=== PATIENT | female | born 1965 | race Caucasian/White ===

== ENCOUNTER 2022-02-14 11:45 | Emergency (ER) | payer MEDICARE, MEDICAID, SELFPAY ==
--- NOTE | ~2022-02-14 | XR_ITS ---
EXAMINATION: XR FOREARM, RIGHT CLINICAL INFORMATION: Lower forearm injury COMPARISON: None TECHNIQUE: AP and lateral views of the right forearm were obtained. FINDINGS: Osseous alignment is anatomic. No acute fracture is seen. No significant focal soft tissue abnormality identified. XR/XR forearm RT 2V IMPRESSION: No acute findings identified.
[2022-02-14 11:58] VITALS: BP 124/65; PULSE 79; RESP 18; TEMP 35.8; O2SAT 98; BMI 35.4
--- NOTE | 2022-02-14 13:56 | ED_ITS ---
HPI - Extremity Problem General Chief complaint: Extremity Injury, Upper Stated complaint: fall 02/13/22 Time Seen by Provider: 02/14/22 13:48 Source: patient Mode of arrival: ambulatory Limitations: no limitations History of Present Illness HPI Narrative: 56-year-old female presents to ED for right elbow and right wrist pain after falling yesterday. Patient states her dog tripped her and she fell right onto the right forearm and right elbow. Patient denies hitting head or loss of consciousness. patient deniea any other trauma, abdominal pain, chest pain, shortness of breath, rectal bleeding, blood in UA, weakness dziness, swelling of extremities, redness, bluish/black consideration, numbness/tinling Related Data Previous Rx's Medication Instructions Recorded oxycodone 5 mg capsule 5 mg PO TID PRN pain 3 days #9 caps 02/14/22 prednisone 20 mg tablet 40 mg PO DAILY 5 days #10 tabs 02/14/22 Allergies Allergy/AdvReac Type Severity Reaction Status Date / Time aspirin Allergy Difficulty Verified 02/14/22 12:02 Breathing diphenhydramine Allergy Difficulty Verified 02/14/22 12:03 [From Benadryl] Breathing Penicillins Allergy Difficulty Verified 02/14/22 12:03 Breathing Review of Systems Review of Systems: Right elbow/forearm pain Yes all other systems are reviewed and are negative PMFSH Social History Social History Advance Directives: No Advance Directives Information Provided: No Physical Exam Vital Signs: Vital Signs: Last Vital Signs Temp 96.4 F L 02/14/22 11:58 Pulse 78 02/14/22 14:04 Resp 16 02/14/22 14:04 BP 130/72 02/14/22 14:04 Pulse Ox 100 02/14/22 14:04 O2 Del Method 02/14/22 14:04 BMI result Body Mass Index 35.4 Const: General: cooperative, healthy appearing, comfortable, no acute distress, well developed, alert, awake and Physically active Orientation/consciousness: oriented to person, oriented to place, oriented to time and patient oriented x3 HEENT: Head: Yes normal to inspection, Yes No palpable skull fracture present, Yes normocephalic, Yes atraumatic and No abrasion Eyes: General: appearance normal, both eyes and all related structures Neck: Neck: Yes normal visual inspection, Yes full ROM, Yes no lymphadenopathy, Yes no meningeal signs, Yes trachea midline, Yes supple, No anterior neck swelling and No tender Chest: Chest palpation & inspection: normal inspection of the chest and normal palpation of entire chest wall Resp: Effort & Inspection: normal respiratory effort and able to speak in complete sentences Auscultation: clear to auscultation bilaterally Cardio: Jugular venous distension: no JVD Heart sounds: S1 normal heart sound present and S2 normal heart sound present GI: Inspection: Yes normal to inspection and No abdominal wall ecchymosis Palpation (GI): Soft to palpation, not firm, nontender, no guarding and not rigid : General: No CVA tenderness and Yes no CVA tenderness Back/Spine/Pelvis: Back: no CVA tenderness, No CVA tenderness and No back tenderness Skin: General skin exam: no rashes or lesions noted and elasticity normal Neuro: General: oriented to person, oriented to place, oriented to time, patient oriented x3, gait normal, Normal light touch and pain sensation, no meningeal signs, no focal motor deficits and CN's II-XI intact bilaterally Extrem: General: Yes normal to inspection and Yes full ROM Elbow/forearm/wrist images: 1. Tenderness on palpation. Negative crepitus or ecchymosis. Negative deformity. Negative bluish black discoloration. Radial/ulnar pulses intact. Capillary refills intact to all fingers. Motor/neuro/vascular exam of hand wrist intact. 2. Positive for tenderness on palpation. Negative for swelling, erythema, ecchymosis, crepitus, or deformity. Brachial pulses intact. Motor/ ne uro/vascular exam of antecubital fossa, shoulder and biceps normal. Psych: Appearance: grossly normal, well kempt and not disheveled Course Course Course Narrative: Forearm x-ray ordered. Reevaluation(s) Reevaluation #1: Forearm x-ray negative for any wrist forearm or elbow fracture. Patient placed in Arthur wrap of elbow wrist. Patient placed in swing. Patient informed right u pper extremity should not being swing at all times. Patient informed t only for comfort and than patient should remove swing her so her right upper extremity can move. . Patient informed to follow-up primary care provider for re- evaluation and repeat x-ray still have pain. Patient discharged with narcotic and prednisone Time: 16:13 MDM - Extremity (Nontraumatic) MDM Narrative Medical decision making narrative: RIght upper extremity contusion. sprain Discharge Plan Discharge Clinical Impression: Sprain and strain of wrist, Contusion Patient Disposition: Home, Self-Care Instructions: How to Use an Elastic Bandage (ED), Contusion in Adults (ED), Wrist Sprain (ED), Cold Compress or Soak (ED) Additional Instructions: Your x-rays came back negative for fractures. Right upper extremity was placed since Arthur wrap and sling. Sling should not be kept on permanently. Due to make attempts to move the right upper extremity outside of the sling. Return to the ED for redness, blue/discoloration, severe pain, coldness, numbness, bluish black discoloration, swelling, red streaks, fever, chills, chest pain, shortness of breath, or any other concerning symptoms. You need to follow-up with primary care provider for re-evaluation for possible MRI or repeat x-ray if pain does not improved. Prescriptions: New prednisone 20 mg tablet 40 mg PO DAILY 5 Days Qty: 10 0RF oxycodone 5 mg capsule 5 mg PO TID PRN (Reason: pain) 3 Days Qty: 9 0RF Rx Instructions: Partial Fill upon patient request. side effect is drowsiness. Do not take at work or while driving. Referrals: Nettie Muñoz MD [Primary Care Provider] - (Wrist sprain. Elbow contusion. If no improvement may need MRI or repeat x-ray) Stand Alone Forms: Work/School Release Interventions: ED Discharge Assessment Last Done: 02/14/22 17:02 Discharge Date/Time: 02/14/22 17:02 Print Language: Sinhala
[2022-02-14 14:04] VITALS: BP 130/72; PULSE 78; RESP 16; O2SAT 100
[2022-02-14] MEDS: oxyCODONE HCl Immed Release 5 MG TABLET PO (15:07)
[2022-02-14] MEDS: predniSONE 20 MG TABLET 60 MG PO (15:07)
== END 2022-02-14 17:02 | disposition home or self-care (01) ==
PROVIDERS: Emergency Provider Emergency Medicine; PCP Internal Medicine
DX: S63.501A Unspecified sprain of right wrist, initial encounter (principal); S66.911A Strain of unspecified muscle, fascia and tendon at wrist and hand level, right hand, initial encounter; S50.11XA Contusion of right forearm, initial encounter; W01.0XXA Fall on same level from slipping, tripping and stumbling without subsequent striking against object, initial encounter; Y93.9 Activity, unspecified; Y92.019 Unspecified place in single-family (private) house as the place of occurrence of the external cause; Y99.9 Unspecified external cause status
CPT/HCPCS: 73090; 99283; 99284

== ENCOUNTER 2023-06-13 10:56 | Emergency (ER) | payer MEDICARE, MEDICAID, SELFPAY ==
--- NOTE | ~2023-06-13 | CT_ITS ---
EXAMINATION: CT SHOULDER WITHOUT CONTRAST, RIGHT CLINICAL INFORMATION: Pain. Injury. Shoulder trauma. COMPARISON: Radiograph from the same day. TECHNIQUE: Multidetector volumetric imaging was obtained through the right shoulder without contrast. Multiplanar reformatted images in coronal and sagittal orientations were submitted. This CT examination was performed using dose optimization techniques as appropriate, variously including the following: *Automated exposure control *Adjustment of mA and/or kV according to patient size (this includes techniques or standardized protocols for targeted exams where dose is matched to indication/reason for exam; i.e. extremities or head) *Use of iterative reconstruction technique DLP: 372 mGy-cm FINDINGS: A comminuted fracture is present at the proximal humerus with a transverse component at the surgical neck and comminuted components of both the greater and lesser tuberosities. The surgical neck component is not significantly displaced. The greater tuberosity fracture fragments are retracted cephalad and medially up to 1.2 cm. There is a more cephalad medial displacement of the lesser tuberosity fragments up to 1.2 cm. These findings constitute a Neer 3 part fracture. No additional fractures are identified. Glenoid is intact as is the remainder of the scapula. There is mild acromioclavicular synovitis with partial resection of the distal clavicle. Rotator cuff musculature is unremarkable. Soft tissue swelling is present around the humeral head and neck. No clear effusion on these images. No appreciable loose bodies. Axillary neurovascular structures are unremarkable. No adenopathy. Imaged portion of the right hemithorax is unremarkable. CT/CT shoulder RT wo IV con IMPRESSION: Comminuted Neer 3 part fracture of the proximal humerus with displacement of the greater and lesser tuberosities.
--- NOTE | ~2023-06-13 | XR_ITS ---
EXAMINATION: XR SHOULDER, RIGHT CLINICAL INFORMATION: Injury, pain. COMPARISON: None available. TECHNIQUE: AP external rotation, Grashey, scapular Y, and axillary views of the right shoulder. FINDINGS: There is a comminuted fracture right greater tuberosity with displacement. No dislocation seen. The AC joint is unremarkable. There is mild soft tissue swelling. XR/XR shoulder RT min 2V IMPRESSION: Comminuted fracture right greater tuberosity with mild soft tissue swelling. No dislocation seen. Further evaluation with CT may be warranted as the exam is suboptimal likely due to patient's body habitus
--- NOTE | ~2023-06-13 | CT_ITS ---
EXAMINATION: CT HEAD WITHOUT CONTRAST CT FACIAL BONES WITHOUT CONTRAST CT CERVICAL SPINE WITHOUT CONTRAST CLINICAL INFORMATION: Fall. Head strike. Pain. Facial trauma. COMPARISON: None available. TECHNIQUE: Imaging was performed from the skull base to vertex without intravenous administration of contrast. In addition, helical noncontrast CT imaging was acquired through the cervical spine and facial bones and source images were reviewed along with axial reconstructions and sagittal and coronal MPRs. This CT examination was performed using dose optimization techniques as appropriate, variously including the following: *Automated exposure control. *Adjustment of mA and/or kV according to patient size (this includes techniques or standardized protocols for targeted exams where dose is matched to indication/reason for exam; i.e. extremities or head). *Use of iterative reconstruction technique. DLP: 1634 mGy-cm FINDINGS: Head: There are small volume hyperattenuating subdural blood products located right posterior aspect of the falx cerebri, measuring up to 0.2 cm in depth. No evidence of edematous territorial infarction. Munoz-white matter differentiation is preserved. A few foci of hypoattenuation in the periventricular and deep white matter are consistent with mild to moderate microangiopathy. The ventricles are normal in morphology and size. No evidence for obstructive hydrocephalus. No abnormal mass effect or midline shift. No extra-axial fluid collections. No acute soft tissue or osseous abnormalities. Maxillofacial Bones: Minimally displaced fractures of the lateral wall of the right orbit, the lateral aspect of the right orbital floor, and the lateral wall of the right maxillary sinus. Trace soft tissue gas along these fractures. Small volume blood products layering within the right maxillary sinus. No evidence of additional maxillofacial bone fractures. The zygomatic arches remain intact. No nasal bone fracture. Moderate rightward nasal septal deviation. No evidence of mandibular fracture. The mandibular condyles remain well-seated in their respective temporal articular grooves. Normal appearance of the intraconal and extraconal fat. No evidence of traumatic injury to the extraocular musculature or globes. Bilateral lens extractions. Mild mucosal thickening of the remaining paranasal sinuses. The mastoid air cells and middle ear cavities are clear. Extensive multifocal odontogenic enamel erosions and periapical lucencies. Cervical Spine: The atlantooccipital and atlantoaxial articulations remain well aligned. Straightening of the normal cervical lordosis. Mild left convex curvature of the cervical spine. Moderate right convex curvature of the visualized thoracic spine. Otherwise, there is anatomic alignment of the vertebral bodies and posterior elements. No evidence of acute fracture or subluxation. The vertebral body heights are maintained. Advanced degenerative disc disease from C5-C7. Mild to moderate degenerative disc disease at all additional levels. Facet and uncovertebral joint arthropathy leads to osseous encroachment on the neural foramina at C5-C6. There is no prevertebral soft tissue swelling. The thyroid gland and remaining cervical soft tissues are within normal limits. The lung apices demonstrate no abnormalities. CT/CT cervical spine wo IV con IMPRESSION: 1. Small volume acute subdural hematoma along the right posterior aspect of the falx cerebri. 2. No evidence of edematous territorial infarction. Mild to moderate underlying microangiopathy. 3. No evidence of acute fracture or traumatic subluxation of the cervical spine. Moderate multilevel degenerative spondyloarthropathy of the cervical spine. 4. Minimally displaced fractures of the lateral wall of the right orbit, lateral aspect of the right orbital floor, and lateral wall of the right maxillary sinus. Small volume blood products layering within the right maxillary sinus. 5. Extensive multifocal odontogenic disease.
--- NOTE | 2023-06-13 11:10 | ED_ITS ---
HPI - General Adult General Chief complaint: Fall Stated complaint: R SHOULDER/ELBOW PAIN S/P FALL ON SIDEWALK PER EMS Time Seen by Provider: 06/13/23 11:09 Source: patient and EMS Mode of arrival: EMS Limitations: no limitations History of Present Illness HPI narrative: Patient is a 57 year old assigned female at with a history of drop foot presenting to the emergency department today with right shoulder / arm pain after a trip and fall. Patient states that she was walking on the sidewalk when she tripped on the uneven side walk and hit her face and right shoulder. Patient denies any loss of consciousness. Patient denies any dizziness, lightheadedness, abdominal pain, nausea, vomiting, fever, chills, blurry vision, double vision, loss of vision, chest pain, difficulty breathing, shortness of breath, back pain, night sweats, pain with urination, increased urinary frequency, increased urinary urgency, blood in her urine or stool, syncope or a near syncopal episode, bowel incontinence, bladder incontinence, bowel retention, bladder retention, or any other complaints at this time. Onset (ago): minute(s) Location: right and upper extremity Radiation: non-radiation Severity: moderate Severity scale (1-10): 5 Quality: aching Pain Consistency: constant Relieving factors: immobilization Exacerbating factors: movement Associated symptoms: denies other symptoms Treatments prior to arrival: none Related Data Previous Rx's Medication Instructions Recorded oxycodone 5 mg capsule 5 mg PO TID PRN pain 3 days #9 caps 02/14/22 prednisone 20 mg tablet 40 mg (2 x 20 mg) PO DAILY 5 days 02/14/22 #10 tabs Allergies Allergy/AdvReac Type Severity Reaction Status Date / Time aspirin [ASA] Allergy Unknown HIVES, Unverified 02/15/22 08:13 DIFF BREATHING penicillin V Allergy Unknown Verified 02/15/22 08:13 Penicillins [PENICILLINS] Allergy Unknown HIVES, Unverified 02/15/22 08:13 DIFF BREATHING diphenhydramine Allergy Difficulty Verified 02/15/22 08:13 [From Benadryl] Breathing Review of Systems Constitutional: Constitutional: Reports no additional constitutional complaints, Denies chills, Denies fever(s) and Denies night sweats Eyes: Eyes: Reports no additional eye complaints, Denies blurry vision, Denies change in vision, Denies diplopia, Denies eye discharge, Denies loss of vision and Denies eye pain ENT: Denies dizziness Cardiovascular: Cardiovascular: Reports no additional cardiovascular complaints, Denies chest pain, Denies lightheadedness, Denies Loss of Consciousness and Denies dyspnea Respiratory: Respiratory: Reports no additional respiratory complaints and Denies dyspnea Gastrointestinal: Gastrointestinal: Reports no additional gastrointestinal complaints, Denies abdominal pain, Denies melena, Denies hematochezia, Denies change in bowel habits and Denies change in stool character Genitourinary: Genitourinary: Denies hematuria, Denies urinary frequency, Denies dysuria, Denies urinary incontinence, Denies urinary hesitancy and Denies urinary urgency Musculoskeletal: Musculoskeletal: Reports no additional musculoskeletal complaints, Denies numbness and Denies tingling Comments: right shoulder pain Neurologic: Denies dizziness, Denies loss of vision, Denies numbness and Denies tingling Psychiatric: Psychiatric: Reports no additional psychiatric complaints Endocrine: Endocrine: Reports no additional endocrine complaints Hematologic/Lymphatic: Hematologic/Lymphatic: Reports no additional hematologic/lymphatic complaints Allergic/Immunologic: Allergic/Immunologic: Reports no additional allergic/immunologic complaints PMFSH Past Medical History Attestation statement: The following information was validated with the patient. Source: old records reviewed and nursing notes reviewed Social History Social History Advance Directives: No Advance Directives Information Provided: No Physical Exam ED Vital Signs: Vital Signs - 24 hr 06/13/23 11:30 06/13/23 11:36 06/13/23 11:40 Temperature 98.3 F Pulse Rate 86 79 Respiratory Rate 18 18 18 Blood Pressure 150/69 H 145/55 H Pulse Oximetry 100 95 Oxygen Delivery Method Room Air 06/13/23 12:25 Temperature Pulse Rate Respiratory Rate 18 Blood Pressure Pulse Oximetry Oxygen Delivery Method BMI result Body Mass Index 43.3 Const General: cooperative, no acute distress, alert and awake Nutritional Appearance: well nourished Orientation/consciousness: patient oriented x3 Limitations: no limitations HENMT Ears: hearing grossly normal bilaterally and external ears normal General nose exam: Normal external nose present, no nasal discharge noted and no epistaxis Face and sinus: Yes abrasion (right side of face) Mouth: Normal oral and palatal mucosa present, no drooling and no muffled voice Eyes Other: swell present to the right upper and lower lids Conjunctivae: conjunctivae normal Pupils: Equal, round and reactive pupils present EOM: EOMs intact bilaterally Neck Neck: Yes normal visual inspection, Yes full ROM and Yes no lymphadenopathy Chest Chest palpation & inspection: normal inspection of the chest Resp Effort & Inspection: normal respiratory effort and able to speak in complete sentences GI Inspection: Yes normal to inspection Neuro General: patient oriented x3 and moves all extremities Cranial nerves: Yes Equal, round and reactive pupils present Cognition (Neuro): normal cognition Motor exam (neuro): 5/5 motor strength present throughout Sensory Exam: Normal double simultaneous stimulation for sensation Coordination: [id number] test normal Extrem General: Yes normal to inspection, Yes full ROM and Yes capillary refill normal Psych Appearance: grossly normal Mental Status: mental status grossly normal Affect: normal affect Attitude: cooperative Thought process: Normal thought process present Thought content: Normal thought content present Insight: Good insight present (Psych) Medications Administered Discontinued Medications Generic Name Dose Route Start Last Admin Trade Name Anastacio PRN Reason Stop Dose Admin Hydromorphone HCl 1 mg 06/13/23 11:21 06/13/23 11:36 Hydromorphone Hcl 1 Mg/Ml Syringe IVPUSH 06/13/23 11:22 1 mg ONCE ONE Administration Protocol Hydromorphone HCl 1 mg 06/13/23 13:19 06/13/23 13:26 Hydromorphone Hcl 1 Mg/Ml Syringe IVPUSH 06/13/23 13:20 1 mg ONCE ONE Administration Protocol Procedures Orthopedic Splinting/Casting Injury #1: Side: right Upper Extremity Injury Location: shoulder and upper arm Upper Extremity Immobilizer: sling/shoulder immobilizer Medical Decision Making Medical Decision Making [facility] Narrative: Patient is a 57 year old assigned female at with a history of right foot drop presenting to the emergency department today with right sided shoulder pain after a trip and fall. Patient's physical exam was as noted in the physical exam portion of this note. Patient's right shoulder x-ray showed a humerus fx and recommended CT for further evaluation. Patient's CT of the right shoulder showed a comminuted neer 3 part fracture of the proximal humerus with displacement of the greater and lesser tuberosities. Patient's CT head showed a small volume acute subdural hematoma along the posterior aspect of the falx cerebri. Patient's CT c-spine was negative. Patient's CT face showed minimally displaced fractures of the lateral wall of the right orbit, fracture of the lateral aspect of the right orbital floor, and fracture of the right lateral maxillary sinus wall with small volume blood products in the right maxillary sinus. I called [facility] and spoke to Dr. Vega who agreed to transfer the patient to the ED as a truama consult. I explained my physical exam findings as well as all test results to the patient and the patient's partner. I answered all questions asked by the patient and the patient's partner. Patient and the patient's partner verbalized agreement and understanding with this treatment plan and transfer. Differential Diagnosis Differential Diagnoses: The differential diagnosis associated with the presentation includes Humerus fracture Facial fracture Subdural hematoma Fall Injury Admission/Observation Consideration of admission/observation: Escalation of care including admission/observation considered Patient transferred to [facility], accepted by Dr. Vega Consult Healthcare Provider Management of the patient was discussed with: Senior Vice President & General Counsel (spoke to Dr. Vega at [facility]) Independent Interpretation I performed an independent interpretation of an: Plain X-Ray and CT Scan Interpretation: My interpretation is in agreement with the radiologist's impression of these imaging studies. -------- EXAMINATION: XR SHOULDER, RIGHT CLINICAL INFORMATION: Injury, pain. COMPARISON: None available. TECHNIQUE: AP external rotation, Grashey, scapular Y, and axillary views of the right shoulder. FINDINGS: There is a comminuted fracture right greater tuberosity with displacement. No dislocation seen. The AC joint is unremarkable. There is mild soft tissue swelling. XR/XR shoulder RT min 2V IMPRESSION: Comminuted fracture right greater tuberosity with mild soft tissue swelling. No dislocation seen. Further evaluation with CT may be warranted as the exam is suboptimal likely due to patient's body habitus Dictated By: Zhang Locke MD Signed By: Electronically signed by Zhang Locke MD 06/13/23 1212 EXAMINATION: CT HEAD WITHOUT CONTRAST CT FACIAL BONES WITHOUT CONTRAST CT CERVICAL SPINE WITHOUT CONTRAST CLINICAL INFORMATION: Fall. Head strike. Pain. Facial trauma. COMPARISON: None available. TECHNIQUE: Imaging was performed from the skull base to vertex without intravenous administration of contrast. In addition, helical noncontrast CT imaging was acquired through the cervical spine and facial bones and source images were reviewed along with axial reconstructions and sagittal and coronal MPRs. This CT examination was performed using dose optimization techniques as appropriate, variously including the following: *Automated exposure control. *Adjustment of mA and/or kV according to patient size (this includes techniques or standardized protocols for targeted exams where dose is matched to indication/reason for exam; i.e. extremities or head). *Use of iterative reconstruction technique. DLP: 1634 mGy-cm FINDINGS: Head: There are small volume hyperattenuating subdural blood products located right posterior aspect of the falx cerebri, measuring up to 0.2 cm in depth. No evidence of edematous territorial infarction. Munoz-white matter differentiation is preserved. A few foci of hypoattenuation in the periventricular and deep white matter are consistent with mild to moderate microangiopathy. The ventricles are normal in morphology and size. No evidence for obstructive hydrocephalus. No abnormal mass effect or midline shift. No extra-axial fluid collections. No acute soft tissue or osseous abnormalities. Maxillofacial Bones: Minimally displaced fractures of the lateral wall of the right orbit, the lateral aspect of the right orbital floor, and the lateral wall of the right maxillary sinus. Trace soft tissue gas along these fractures. Small volume blood products layering within the right maxillary sinus. No evidence of additional maxillofacial bone fractures. The zygomatic arches remain intact. No nasal bone fracture. Moderate rightward nasal septal deviation. No evidence of mandibular fracture. The mandibular condyles remain well-seated in their respective temporal articular grooves. Normal appearance of the intraconal and extraconal fat. No evidence of traumatic injury to the extraocular musculature or globes. Bilateral lens extractions. Mild mucosal thickening of the remaining paranasal sinuses. The mastoid air cells and middle ear cavities are clear. Extensive multifocal odontogenic enamel erosions and periapical lucencies. Cervical Spine: The atlantooccipital and atlantoaxial articulations remain well aligned. Straightening of the normal cervical lordosis. Mild left convex curvature of the cervical spine. Moderate right convex curvature of the visualized thoracic spine. Otherwise, there is anatomic alignment of the vertebral bodies and posterior elements. No evidence of acute fracture or subluxation. The vertebral body heights are maintained. Advanced degenerative disc disease from C5-C7. Mild to moderate degenerative disc disease at all additional levels. Facet and uncovertebral joint arthropathy leads to osseous encroachment on the neural foramina at C5-C6. There is no prevertebral soft tissue swelling. The thyroid gland and remaining cervical soft tissues are within normal limits. The lung apices demonstrate no abnormalities. CT/CT cervical spine wo IV con IMPRESSION: 1. Small volume acute subdural hematoma along the right posterior aspect of the falx cerebri. 2. No evidence of edematous territorial infarction. Mild to moderate underlying microangiopathy. 3. No evidence of acute fracture or traumatic subluxation of the cervical spine. Moderate multilevel degenerative spondyloarthropathy of the cervical spine. 4. Minimally displaced fractures of the lateral wall of the right orbit, lateral aspect of the right orbital floor, and lateral wall of the right maxillary sinus. Small volume blood products layering within the right maxillary sinus. 5. Extensive multifocal odontogenic disease. Dictated By: Sree Mendez DO Signed By: Electronically signed by Sree Mendez DO 06/13/23 1355 EXAMINATION: CT SHOULDER WITHOUT CONTRAST, RIGHT CLINICAL INFORMATION: Pain. Injury. Shoulder trauma. COMPARISON: Radiograph from the same day. TECHNIQUE: Multidetector volumetric imaging was obtained through the right shoulder without contrast. Multiplanar reformatted images in coronal and sagittal orientations were submitted. This CT examination was performed using dose optimization techniques as appropriate, variously including the following: *Automated exposure control *Adjustment of mA and/or kV according to patient size (this includes techniques or standardized protocols for targeted exams where dose is matched to indication/reason for exam; i.e. extremities or head) *Use of iterative reconstruction technique DLP: 372 mGy-cm FINDINGS: A comminuted fracture is present at the proximal humerus with a transverse component at the surgical neck and comminuted components of both the greater and lesser tuberosities. The surgical neck component is not significantly displaced. The greater tuberosity fracture fragments are retracted cephalad and medially up to 1.2 cm. There is a more cephalad medial displacement of the lesser tuberosity fragments up to 1.2 cm. These findings constitute a Neer 3 part fracture. No additional fractures are identified. Glenoid is intact as is the remainder of the scapula. There is mild acromioclavicular synovitis with partial resection of the distal clavicle. Rotator cuff musculature is unremarkable. Soft tissue swelling is present around the humeral head and neck. No clear effusion on these images. No appreciable loose bodies. Axillary neurovascular structures are unremarkable. No adenopathy. Imaged portion of the right hemithorax is unremarkable. CT/CT shoulder RT wo IV con IMPRESSION: Comminuted Neer 3 part fracture of the proximal humerus with displacement of the greater and lesser tuberosities. Dictated By: N Signed By: Electronically signed by N 06/13/23 1122 Radiology Impression Discussion of test interpretation with radiology: I have reviewed the radiologist's reading. Independent Historian Clinical information obtained from an independent historian. History obtained from or confirmed by: EMS (EMS provided additional history and confirmed the history provided by the patient.) and Other (patient's partner provided additional history and confirmed the history provided by the patient.) Critical Care Time Critical Care Time Critical Care Time: Yes Total Critical Care Time: 65 Attestation: I spent 65 minutes of Critical Care Time with this patient. This does not include time spent on separately reported billable procedures. Discharge Plan Discharge Clinical Impression: Fall, Orbital fracture, Acute subdural hematoma, Fracture, humerus Patient Disposition: General Acute Hospital Transfer Details: [facility] ED - Trauma consult under Dr. Vega Prescriptions: No Action prednisone 20 mg tablet 40 mg PO DAILY 5 Days Qty: 10 0RF oxycodone 5 mg capsule 5 mg PO TID PRN (Reason: pain) 3 Days Qty: 9 0RF Rx Instructions: Partial Fill upon patient request. side effect is drowsiness. Do not take at work or while driving.
[2023-06-13 11:30] VITALS: BP 150/69; PULSE 86; RESP 18; TEMP 36.8; O2SAT 100; BMI 43.3
[2023-06-13 11:36] VITALS: RESP 18
[2023-06-13] MEDS: HYDROmorphone HCl 1 MG/ML SYRINGE IVPUSH ×2 (11:36→13:26)
[2023-06-13 11:40] VITALS: BP 145/55; PULSE 79; RESP 18; O2SAT 95
[2023-06-13 12:25] VITALS: RESP 18
== END 2023-06-13 16:00 | disposition short-term general hospital (02) ==
PROVIDERS: Emergency Provider Emergency Medicine; PCP Internal Medicine
DX: S06.5X0A Traumatic subdural hemorrhage without loss of consciousness, initial encounter (principal); S02.841A Fracture of lateral orbital wall, right side, initial encounter for closed fracture; S42.231A 3-part fracture of surgical neck of right humerus, initial encounter for closed fracture; S00.81XA Abrasion of other part of head, initial encounter; W10.1XXA Fall (on)(from) sidewalk curb, initial encounter; Y93.01 Activity, walking, marching and hiking; Y92.480 Sidewalk as the place of occurrence of the external cause; Y99.9 Unspecified external cause status
CPT/HCPCS: 70450; 70486; 72125; 73030; 73200; 96374; 96376; 99285; J1170

== ENCOUNTER 2023-11-17 09:26 | Emergency (ER) | payer MEDICARE, MEDICAID, SELFPAY ==
--- NOTE | ~2023-11-17 | XR_ITS ---
EXAMINATION: XR RIGHT ANKLE XR RIGHT FOOT CLINICAL INFORMATION: Right lower extremity injury and pain. COMPARISON: 12/14/2012 and 11/28/2012 TECHNIQUE: AP, lateral, and oblique views of the right ankle and right foot were obtained. FINDINGS: Alignment is anatomic. Ankle mortise is maintained. The talar dome is intact. No displaced fracture or dislocation. Hallux valgus with mild joint space narrowing of the first MTP joint. Posterior and plantar calcaneal spurs. There is calcification within the plantar fascia. XR/XR foot RT min 3V IMPRESSION: No acute abnormality.
--- NOTE | ~2023-11-17 | XR_ITS ---
EXAMINATION: XR RIGHT ANKLE XR RIGHT FOOT CLINICAL INFORMATION: Right lower extremity injury and pain. COMPARISON: 12/14/2012 and 11/28/2012 TECHNIQUE: AP, lateral, and oblique views of the right ankle and right foot were obtained. FINDINGS: Alignment is anatomic. Ankle mortise is maintained. The talar dome is intact. No displaced fracture or dislocation. Hallux valgus with mild joint space narrowing of the first MTP joint. Posterior and plantar calcaneal spurs. There is calcification within the plantar fascia. XR/XR ankle RT min 3V IMPRESSION: No acute abnormality.
[2023-11-17 09:28] VITALS: BP 157/70; PULSE 106; RESP 16; TEMP 36.3; O2SAT 95; BMI 37.3
--- NOTE | 2023-11-17 09:37 | PC.NURSE ---
patient a&ox3, awaiting radiology for xrays, will continue to monitor
--- NOTE | 2023-11-17 11:02 | ED_ITS ---
HPI - General Adult General Chief complaint: Extremity Injury, Lower Stated complaint: R ankle injury Time Seen by Provider: 11/17/23 09:31 Source: patient Mode of arrival: ambulatory Limitations: no limitations History of Present Illness ED Provider: Sohail MONTANO HPI narrative: 58 yold female with past medical history of diabetes presents to ED for right ankle pain since yesterday. Patient states she was walking and she missed time her step and stepped wrong on a curve. Patient denies hearing cracking or popping sign. patient states twisting ankle Patient denies falling to the ground. Patient states ever since having a missed that step she has had pain in her right ankle. Patient denies falling to the ground or hitting head. Patient denies any loss of consciousness, abdominal pain, neck pain, chest pain, shortness of breath, leg swelling, bluish black discoloration, redness, calf pain, fever, chills, stiffness, or weakness. Related Data Previous Rx's ?Medication ?Instructions ?Recorded oxycodone 5 mg capsule 5 mg PO TID PRN pain 3 days #9 caps 02/14/22 prednisone 20 mg tablet 40 mg (2 x 20 mg) PO DAILY 5 days 02/14/22 #10 tabs acetaminophen 325 mg capsule 325 mg PO QID PRN pain 7 days #28 11/17/23 caps oxycodone 5 mg tablet 5 mg PO Q8H PRN pain 3 days #9 tabs 11/17/23 Allergies Allergy/AdvReac Type Severity Reaction Status Date / Time aspirin [ASA] Allergy Unknown HIVES, Verified 11/17/23 09:28 DIFF BREATHING penicillin V Allergy Unknown Unknown Verified 11/17/23 09:28 Penicillins [PENICILLINS] Allergy Unknown HIVES, Verified 11/17/23 09:28 DIFF BREATHING diphenhydramine Allergy Difficulty Verified 11/17/23 09:28 [From Benadryl] Breathing Review of Systems 2 Review of Systems: Right ankle pain Yes all other systems are reviewed and are negative [facility] Social History Social History Advance Directives: No Advance Directives Information Provided: Yes Physical Exam ED Vital Signs: Vital Signs - 24 hr 11/17/23 09:28 11/17/23 12:26 Temperature 97.3 F 98.1 F Pulse Rate 106 H 98 Respiratory Rate 16 16 Blood Pressure 157/70 H 156/72 H Pulse Oximetry 95 96 Oxygen Delivery Method Room Air Room Air BMI result Body Mass Index 37.3 Const General: cooperative, healthy appearing, comfortable, no acute distress, well developed, alert, awake and Physically active Orientation/consciousness: patient oriented x3 [facility] Head: Yes normal to inspection, Yes No palpable skull fracture present, Yes normocephalic, Yes atraumatic and No abrasion Eyes General: appearance normal, both eyes and all related structures Neck Neck: Yes normal visual inspection, Yes full ROM, Yes no lymphadenopathy, Yes no meningeal signs, Yes trachea midline, Yes supple, No anterior neck swelling and No tender Chest Chest palpation & inspection: normal inspection of the chest and normal palpation of entire chest wall Resp Effort & Inspection: normal respiratory effort and able to speak in complete sentences Cardio Jugular venous distension: no JVD Heart sounds: S1 normal heart sound present and S2 normal heart sound present GI Inspection: Yes normal to inspection Palpation (GI): Soft to palpation, not firm, nontender, no guarding and not rigid General: No CVA tenderness and Yes no CVA tenderness Back/Spine/Pelvis Back: no CVA tenderness, No CVA tenderness and No back tenderness Skin General skin exam: no rashes or lesions noted, elasticity normal and turgor normal Neuro General: patient oriented x3, gait normal, tone normal, moves all extremities, Normal light touch and pain sensation, no meningeal signs, no focal motor deficits, CN's II-XI intact bilaterally and normal sensation to monofilament Extrem General: Yes normal to inspection, Yes full ROM, Yes capillary refill normal and Yes normal exam except as noted Ankle/foot/toe images: 2 1. Positive for tenderness on palpation. Negative for crepitus, ecchymosis, or deformity. Negative for erythema. Achilles intact. Negative for open wounds. Negative for pus discharge or foul odor. Motor/neuro/vascular exam intact. Rest of extremity normal Psych Appearance: grossly normal, well kempt and not disheveled Medications Administered Discontinued Medications Generic Name Dose Route Start Last Admin Trade Name Freq PRN Reason Stop Dose Admin Acetaminophen 975 mg 11/17/23 11:36 11/17/23 11:47 Acetaminophen 325 Mg Tablet PO 11/17/23 11:37 975 mg ONCE ONE Administration Oxycodone HCl 5 mg 11/17/23 11:36 11/17/23 11:47 Oxycodone Hcl Immed Release 5 Mg Tablet PO 11/17/23 11:37 5 mg ONCE ONE Administration Medical Decision Making Medical Decision Making [facility] Narrative: 58-year-old female presents to ED for right ankle pain due to missed that occurred yesterday. Patient is walking on ankle fine. Patient denied any distress. Patient is sent for x-ray. 12:09pm: X-rays negative for fractures. Patient is placed in Arthur wrap. Patient informed to follow-up with primary care provider. Patient explained worrisome signs and informed to return to the ED if she has them.. Patient to be discharged with pain medication. Not suspecting DVT, dislocation, compartment syndrome, arterial occlusion, severe fracture, cellulitis, necrotizing fasciitis, or osteomyelitis. Differential Diagnosis Differential Diagnoses: The differential diagnosis associated with the presentation includes (Ankle sprain, fracture, dislocation) Admission/Observation Consideration of admission/observation: Escalation of care including admission/observation considered Independent Interpretation I performed an independent interpretation of an: Plain X-Ray Radiology Impression Discussion of test interpretation with radiology: I have reviewed the radiologist's reading. Independent Historian Clinical information obtained from an independent historian. History obtained from or confirmed by: Other (Patient) External Record Review External record reviewed: Other (Prior visits) Prescription Management I considered prescription management with: Pain Medication Discharge Plan Discharge Clinical Impression: Ankle sprain and strain Patient Disposition: Home, Self-Care Instructions: Ankle Sprain (ED), R.I.C.E. Treatment (ED) Additional Instructions: Your x-rays came back normal and negative for any fractures. Recommend rest, elevation, and ice. You will be discharged with Tylenol oxycodone. Recommend follow-up with primary care provider. Return to the ED immediately for any swelling, redness, bluish black discoloration, severe pain, red streaks, inability to walk, chest pain, shortness of breath, or any other concerning symptoms. FINDINGS: Alignment is anatomic. Ankle mortise is maintained. The talar dome is intact. No displaced fracture or dislocation. Hallux valgus with mild joint space narrowing of the first MTP joint. Posterior and plantar calcaneal spurs. There is calcification within the plantar fascia. XR/XR foot RT min 3V IMPRESSION: No acute abnormality. Prescriptions: New oxycodone 5 mg tablet 5 mg PO Q8H PRN (Reason: pain) 3 Days Qty: 9 0RF Rx Instructions: Partial Fill upon patient request. acetaminophen 325 mg capsule 325 mg PO QID PRN (Reason: pain) 7 Days Qty: 28 0RF No Action prednisone 20 mg tablet 40 mg PO DAILY 5 Days Qty: 10 0RF oxycodone 5 mg capsule 5 mg PO TID PRN (Reason: pain) 3 Days Qty: 9 0RF Rx Instructions: Partial Fill upon patient request. side effect is drowsiness. Do not take at work or while driving. Stand Alone Forms: Work/School Release Interventions: ED Discharge Assessment Last Done: 11/17/23 12:26 Discharge Date/Time: 11/17/23 12:27 Print Language: Lao
[2023-11-17] MEDS: Acetaminophen 325 MG TABLET 975 MG PO (11:47)
[2023-11-17] MEDS: oxyCODONE HCl Immed Release 5 MG TABLET PO (11:47)
--- NOTE | 2023-11-17 11:50 | PC.NURSE ---
pt medicated for 9/10 rt ankle pain, casi wrap applied to ankle
[2023-11-17 12:26] VITALS: BP 156/72; PULSE 98; RESP 16; TEMP 36.7; O2SAT 96
== END 2023-11-17 12:27 | disposition home or self-care (01) ==
PROVIDERS: Emergency Provider Emergency Medicine; PCP Internal Medicine
DX: S93.401A Sprain of unspecified ligament of right ankle, initial encounter (principal); S96.911A Strain of unspecified muscle and tendon at ankle and foot level, right foot, initial encounter; W10.1XXA Fall (on)(from) sidewalk curb, initial encounter; Y93.01 Activity, walking, marching and hiking; Y92.480 Sidewalk as the place of occurrence of the external cause; Y99.9 Unspecified external cause status
CPT/HCPCS: 73610; 73630; 99283

== ENCOUNTER 2023-11-30 10:00 | Outpatient (RCR) | payer MEDICARE, MEDICAID, SELFPAY | END 2023-12-16 11:33 | disposition home or self-care (01) | LOC: HO.PT 10:00 | PROVIDERS: PCP Internal Medicine; Visit Provider Physician Assistant | DX: Z89.231 Acquired absence of right shoulder (principal) | CPT/HCPCS: 97110; 97161 ==

== ENCOUNTER 2024-11-01 18:25 | Emergency (ER) | payer MEDICARE, MEDICAID, SELFPAY ==
--- NOTE | ~2024-11-01 | XR_ITS ---
CLINICAL HISTORY: lateral pain after fall Right ankle three views Comparison: 11/17/2023 Findings: No acute fracture or dislocation identified. No acute focal bony abnormality. No radiopaque foreign body noted. Impression: No acute bony abnormality This document has been electronically signed by: Kem Christian MD on 11/01/2024 19:25:33
--- NOTE | ~2024-11-01 | XR_ITS ---
CLINICAL HISTORY: lateral pain after fall Right foot three views Comparison: 11/17/2023 Findings: Nondisplaced fracture 5th proximal phalanx. No other acute bony abnormality. Degenerative change multiple joints. Impression: Nondisplaced 5th proximal phalanx fracture This document has been electronically signed by: Kem Christian MD on 11/01/2024 19:26:08
[2024-11-01 18:37] VITALS: BP 150/70; PULSE 101; RESP 16; TEMP 36.3; O2SAT 97; BMI 38.4
--- NOTE | 2024-11-01 18:37 | ED.GENADULT ---
HPI - General Adult General Chief complaint: Extremity Injury, Lower Stated complaint: rt foot injury Time Seen by Provider: 11/01/24 21:37 Source: patient Mode of arrival: ambulatory Limitations: no limitations History of Present Illness ED Provider: HPI narrative: Patient is complaining of pain in the right 5th toe after tripping on stairs yesterday able to walk on the foot but has a increased swelling and pain in the right 5th toe Related Data Previous Rx's ?Medication ?Instructions ?Recorded oxycodone 5 mg capsule 5 mg PO TID PRN pain 3 days #9 caps 02/14/22 prednisone 20 mg tablet 40 mg (2 x 20 mg) PO DAILY 5 days 02/14/22 #10 tabs acetaminophen 325 mg capsule 325 mg PO QID PRN pain 7 days #28 11/17/23 caps oxycodone 5 mg tablet 5 mg PO Q8H PRN pain 3 days #9 tabs 11/17/23 ibuprofen 600 mg tablet 600 mg PO Q6H PRN fever or pain 11/01/24 #30 tabs Allergies Allergy/AdvReac Type Severity Reaction Status Date / Time aspirin (ASA) Allergy Unknown HIVES, Verified 11/01/24 18:39 DIFF BREATHING penicillin V Allergy Unknown Unknown Verified 11/01/24 18:39 Penicillins (PENICILLINS) Allergy Unknown HIVES, Verified 11/01/24 18:39 DIFF BREATHING diphenhydramine (From Allergy Difficulty Verified 11/01/24 18:39 Benadryl) Breathing Review of Systems Review of Systems: Yes all other systems are reviewed and are negative [facility] Social History Social History Smoked in Last 30 Days: No Use of substances other than those prescribed or required for medical reasons: No Advance Directives: No Advance Directives Information Provided: No Do you have a plan to hurt others: No Plan Physical Exam ED Vital Signs: BMI result Body Mass Index 38.4 Appearance: Alert. Oriented X3. No acute distress. Eyes: PERRLA, No Nystagmus ENT: Pharynx normal. Oral Mucosa moist Neck: Normal inspection. Neck supple. No midline tenderness CVS: Normal heart rate and rhythm. Pulses normal. Respiratory: No respiratory distress. Equal air entry bilateral, no wheezing/rales/rhonchi Abdomen: Soft and nontender. Bowel sounds are present, no mass palpable, no CVA tenderness Skin: Skin warm and dry. Normal skin color. Normal skin turgor. Extremities: No lower extremity edema. No calf tenderness right 5th toeswollen and tender Neuro: Oriented X 3. No motor deficit. No sensory deficit.No cerebellar signs , cranial nerves II-XII intact Course Course Course Narrative: This is a rapid medical exam performed by Yo Cabrera NP: Additional HPI, ROS, PE not included below will be deferred to primary provider. Patient is a 59-year-old female presenting with right foot and ankle pain since yesterday. States she tripped down a few steps, falling backwards. Now having pain with ambulation Plan: imaging Medical Decision Making Medical Decision Making [facility] Narrative: Patient with nondisplaced proximal 5th toe fracture dia tape was applied also was given postop shoe and crutches were give advised to follow up as outpatient Independent Interpretation I performed an independent interpretation of an: Plain X-Ray Interpretation: Positive nondisplaced 5th proximal phalanx fracture Radiology Impression Discussion of test interpretation with radiology: I have reviewed the radiologist's reading. Discharge Plan Discharge Clinical Impression: Fracture of toe Patient Disposition: Home, Self-Care Instructions: Crutch Instructions (ED), Toe Fracture (ED), Post Surgical Shoe (ED) Additional Instructions: You have fracture of the 5th toe use dia tape as placed use crutches for ambulation and wear the postop shoe Ibuprofen for pain Follow with your PCP as needed Prescriptions: New ibuprofen 600 mg tablet 600 mg PO Q6H PRN (Reason: fever or pain) Qty: 30 0RF No Action prednisone 20 mg tablet 40 mg PO DAILY 5 Days Qty: 10 0RF oxycodone 5 mg capsule 5 mg PO TID PRN (Reason: pain) 3 Days Qty: 9 0RF Rx Instructions: Partial Fill upon patient request. side effect is drowsiness. Do not take at work or while driving. oxycodone 5 mg tablet 5 mg PO Q8H PRN (Reason: pain) 3 Days Qty: 9 0RF Rx Instructions: Partial Fill upon patient request. acetaminophen 325 mg capsule 325 mg PO QID PRN (Reason: pain) 7 Days Qty: 28 0RF Interventions: ED Discharge Assessment Last Done: 11/01/24 22:17 Discharge Date/Time: 11/01/24 22:26 Print Language: Yakut
--- OUTSIDE RECORDS SUMMARY | 2024-11-01 20:09 | XMS_ITS | Clinical Summary ---
Author Organization [facility] Address [address] [place] [id number] Care Team Providers Care Melangeur Operator Name Role Phone Nettie Muñoz MD Primary Care Provider [phone] Allergies Active Allergy Reactions Criticality Noted Date Comments Diphenhydramine 01/15/2021 Penicillin G Other (See Comments) High 11/17/2006 RASH, HIVES, DIFFICULTY BREATHING Salicylates Other (See Comments) High 11/17/2006 HIVE, RASH AND DIFFICULTY BREATHING Medications Medication Sig Dispensed Refills Start Date End Date Status exenatide (BYETTA) injection 10 mcg/0.04 mL INJECT 10 MCG SUBCUTANEOUSLY TWICE A DAY 0 12/06/2017 Active gabapentin (NEURONTIN) 800 MG tablet Take 800 mg by mouth. 0 12/14/2016 Active glipiZIDE (GLUCOTROL XL) ER 24 hr tablet 10 mg TAKE 1 TABLET BY MOUTH TWICE DAILY WITH MEALS 0 04/27/2018 Active insulin glargine (LANTUS SOLOSTAR) injection 100 units/mL Inject 58 Units under the skin. 0 01/24/2018 Active meloxicam (MOBIC) 7.5 MG tablet Take 7.5 mg by mouth. 0 06/12/2018 Active metFORMIN (GLUCOPHAGE) tablet 500 mg Take 1,000 mg by mouth. 0 05/03/2018 Active sertraline (ZOLOFT) 50 MG tablet Take 50 mg by mouth. 0 01/23/2018 Ac tive acetaminophen (TYLENOL EXTRA STRENGTH) 500 MG tablet Take 1,000 mg by mouth. 0 11/01/2016 Active dulaglutide (Trulicity) 3 MG/0.5ML subcutaneous pen-injector Inject 3 mg under the skin. 0 10/10/2020 Active LORazepam (Ativan) 1 MG tablet Take 1 tab 1 hour prior to MRI study. Must have somebody bring you to and from imaging exam. 1 tablet 0 01/15/2021 Active ibuprofen 800 MG tablet Take 1 tablet by mouth every 8 (eight) hours as needed. 0 02/04/2021 Active Active Problems Problem Noted Date Diagnosed Date Cervical neck pain with evidence of disc disease 07/04/2018 Left shoulder pain 07/04/2018 Family History Medical History Relation Name Comments Diabetes Father Heart disease Father Hypertension Father Cancer Mother Relation Name Status Comments Father Mother Social History Tobacco Use Types Packs/Day Years Used Date Smoking Tobacco: Never Assessed Sex and Gender Information Value Date Recorded Sex Assigned at Not on file Gender Identity Not on file Sexual Orientation Not on file Job Start Date Occupation Industry Not on file Not on file Not on file Last Filed Vital Signs Vital Sign Reading Time Taken Comments Blood Pressure - - Pulse - - Temperature - - Respiratory Rate - - Oxygen Saturation - - Inhaled Oxygen Concentration - - Weight 103 kg (227 lb) 01/15/2021 1:06 PM EDT Height 165.1 cm (5' 5 ) 01/15/2021 1:06 PM EDT Body Mass Index 37.77 01/15/2021 1:06 PM EDT Plan of Treatment Health Maintenance Due Date Last Done Comments Hepatitis B Vaccines (1 of 3 - 3-dose series) 1965 Hepatitis C Screening 1965 COVID-19 Vaccine (#1) 03/24/1966 Depression Screening 1977 BMI Counseling 09/23/1983 Preventative Health Evaluation 09/23/1983 Cervical Cancer Screening (Pap Smear) 1986 Colon Cancer Screening (Colonoscopy) 2010 Breast Cancer Screening (Mammogram) 09/23/2015 Shingrix-Zoster Vaccine (1 of 2) 09/23/2015 DTap / Tdap / Td (2 - Td or Tdap) 02/17/2017 02/17/2007 Influenza Vaccine (#1) 2024 1, 02/19/2020, 12/27/2018, Additional history exists Pneumococcal Vaccine Aged Out 11/17/2006 No long er eligible based on patient's age to complete this topic RSV Ped < 20 months Aged Out No longe r eligible based on patient's age to complete this topic Care Teams Melangeur Operator Relationship Specialty Start Date End Date Nettie Muñoz MD PCP - General Internal Medicine 01/09/21
--- OUTSIDE RECORDS SUMMARY | 2024-11-01 20:09 | XMS_ITS | Data Portability ---
Author Organization [facility], [facility] Address [address] [place] [address] Care Team Providers Care Medical Housekeeper Name Role Phone ALISSONKATIA GAVIRIAE Primary Care Provider Assessment No assessment recorded. Plan of Treatment Reminders Order Date Submit Date Provider Last Modified By Organization Details Last Modified Time Details Appointments None recorded. Lab None recorded. Referral physical therapist referral - S/P Reverse TSA Begin week 2- wean from sling week 3, PROM week 2-3, AAROM week 3-4, AROM week 4-5, RC/Ps/Del toid strength week 8, try incline board at week 6-8 tp improve overhead function. 2023 024 [email or web address] Not available 16:12:39 physical therapist referral - S/P Reverse TSA Begin week 2- wean from sling week 3, PROM week 2-3, AAROM week 3-4, AROM week 4-5, RC/Ps/Del toid strength week 8, try incline board at week 6-8 tp improve overhead function. 2023 024 [email or web address] Not available 11:55:42 Procedures None recorded. Surgeries None recorded. Imaging XR, shoulder, 2 or more view - rm 209 R shoulder sx ML 2023 024 aneudy [facility], [address], [address], [place], [address], 16:12:39 XR, shoulder, 2 or more view - rm [address] srinivasan surgery 07/05/2307/13/2 024 [email or web address] Not available 4 11:55:42 Medication Orders oxycodone 5 mg tablet 2023 024 [id number], [address], [place], [id number], 12:21:50 Patient TargetsNo targets recorded. Patient InstructionsNo instructions recorded. Reason for Referral Physical Therapist Referral for History of reverse prosthetic total arthroplasty of right shoulder S/P Reverse TSABegin week 2- wean from sling week 3, PROM week 2-3, AAROM week 3-4, AROM week 4-5, RC/Ps/Deltoid strength week 8, try incline board at week 6-8 tp improve overhead function. Referring Physician: Kulwant Srinivasan, Orthopedic Surgery, [id number] Encounter Date: 07/14/2023 Physical Therapist Referral for History of operative procedure on shoulder S/P Reverse TSABegin week 2- wean from sling week 3, PROM week 2-3, AAROM week 3-4, AROM week 4-5, RC/Ps/Deltoid strength week 8, try incline board at week 6-8 tp improve overhead function. Referring Physician: Fred Rdz, Orthopedic Surgery, [id number] Encounter Date: 09/13/2023 Results Created Date Observation Date Name Description Value Unit Range Abnormal Flag Note LastModifiedBy Organization Detail LastModifiedTime Result Notes None recorded. Problems Name Problem SNOMED Code Status Onset Date Resolution Date Notes Provider Name and Address Organization Details Recorded Time No complaints 468098668 Active Status : 'I'; Not Available [facility] 4 09:20:28 Fracture of neck of humerus 857727163 Active 2023 Status : 'A'; Not Available [facility] 4 09:20:28 Closed fracture of proximal right humerus 8016308232518 9105 Active 2023 Kulwant Srinivasan MD [address], [place], [address] , [facility] 4 07:01:34 Problem Notes None recorded. Medical Equipment None Reported. Allergies Allergen ID Allergen Name Allergen Category Reaction Reaction Severity Criticality Documentation Date Start Date Code Code System Note Provider Name and Address Organization Details Recorded Time 473015 aspirin medicatio n Not available Not available Not available 07/14/2023 1191 RxNorm SAIDA [facility] 4 12:04:06 873915 shellfish derived food,medi cation Not available Not available Not available 07/14/2023 81043 UNK [facility] 4 12:04:16 956196 Product containin g penicilli n (product) medicatio n Not available Not available Not available 07/14/2023 28138 8001 SNOMED [facility] 4 12:04:25 037072 Benadryl medicatio n Not available Not available Not available 10/11/2023202345 7 RxNorm Not Available [facility] 4 09:09:32 Medications Name Sig Start Date Stop Date Status Note LastModified by Organization Details LastModified Time metformin 500 mg tablet TAKE 2 TABLETS BY MOUTH TWICE DAILY active Not Available Not Available No t Available betamethason e valerate 0.1 % topical ointment APPLY A THIN LAYER TO AFFECTED AREAS TWICE DAILY FOR UP TO 2 WEEKS AT A TIME NEEDED FOR PSORIASIS RASH active Not Available Not Available No t Available prazosin 1 mg capsule TAKE 1 CAPSULE BY MOUTH EVERY DAY AT BEDTIME FOR NIGHTMARES active Not Available Not Available N ot Available gabapentin 400 mg capsule TAKE 2 CAPSULES BY MOUTH THREE TIMES DAILY active Not Available Not Available Not Available doxycycline monohydrate 100 mg tablet TAKE 1 TABLET BY MOUTH TWICE DAILY active Not Available Not Available No t Available acetaminophe n 500 mg tablet TAKE 1 TABLET BY MOUTH THREE TIMES DAILY FOR PAIN active Not Available Not Available No t Available gabapentin 800 mg tablet TAKE 1 TABLET BY MOUTH THREE TIMES DAILY active Not Available Not Available Not Available OneTouch Ultra Test strips USE DIRECTED TO TEST BLOOD SUGAR FOUR TIMES DAILY active Not Available Not Available Not Available docusate sodium 100 mg capsule TAKE ONE CAPSULE BY MOUTH TWICE DAILY active Not Available Not Available No t Available ibuprofen 600 mg tablet TAKE 1 TABLET BY MOUTH EVERY 8 HOURS NEEDED FOR PAIN active Not Available Not Available No t Available naproxen 500 mg tablet TAKE 1 TABLET BY MOUTH TWICE DAILY active Not Available Not Available No t Available oxycodone 5 mg tablet TAKE 1 TABLET BY MOUTH EVERY 8 HOURS FOR 3 DAYS NEEDED FOR PAIN active Not Available Not Available No t Available duloxetine 30 mg capsule,hugo yed release TAKE 1 CAPSULE BY MOUTH EVERY DAY active Not Available Not Available No t Available duloxetine 60 mg capsule,hugo yed release TAKE 1 CAPSULE BY MOUTH TWICE DAILY DIRECTED active Not Available Not Available No t Available aripiprazole 2 mg tablet TAKE 1 TABLET BY MOUTH EVERY DAY IN THE MORNING active Not Available Not Available No t Available Lantus Solostar U-100 Insulin 100 unit/mL (3 mL) subcutaneous pen ADMINISTER 80 UNITS UNDER THE SKIN AT BEDTIME active Not Available Not Available No t Available Trulicity 1.5 mg/0.5 mL subcutaneous pen injector INJECT 1.5 MG UNDER THE SKIN ONCE WEEKLY active Not Available Not Available Not Available Rexulti 1 mg tablet TAKE 1 TABLET BY MOUTH EVERY DAY IN THE MORNING active Not Available Not Available No t Available Rexulti 0.5 mg tablet TAKE 1 TABLET BY MOUTH EVERY DAY IN THE MORNING active Not Available Not Available No t Available BD Ursula 2nd Gen Pen Needle 32 gauge x 5/32 active Not Available Not Available Not Available Trulicity 3 mg/0.5 mL subcutaneous pen injector INJECT 3 MG INTO THE SKIN EVERY 7 DAYS SUBCUTANEOU S). active Not Available Not Available No t Available Dexcom G7 Sensor device CHANGE SENSOR EVERY 10 DAYS active Not Available Not Available No t Available Vitals Date Recorded Body height Body temperature Body mass index (BMI) Body weight Provider Name and Address Organization Details Last Updated DateTime 07/14/2023 152.4 cm 98.6 [degF] 41.2 kg/m2 29611.99 g SAIDA WANG [facility] 07/14/2023 12:03:51 Date Recorded Body height Provider Name an d Address Organization Details Last Updated DateTime 09/13/2023 152.4 cm JOEL CONCEPCION [facility] 09/13/2023 14:33:37 Social History None recorded. Functional Status None recorded. Mental Status None recorded. Family History Nothing Reported. Medical History Condition Response Allergies/Hayfever N Coronary Artery Disease N Anxiety/Depression N Emphysema N Thyroid Problems N COPD N Pacemaker N Kidney/Bladder Problems N Anemia N Vascular Disease N Gastrointestinal Disease N Heart Attack (NE) N Diabetes Y Autoimmune disease N Bleeding Disorder N Orthotics N Arthritis Y Seizures/Epilepsy N Blood Clot N AIDS/HIV N Congestive Heart Failure (CHF) N Acid Reflux (GERD) N Cancer N Stroke N Asthma N Peripheral Vascular Disease N Sleep Apnea N Hepatitis N Heart Disease N Rheumatoid Arthritis N Arrhythmia N Pulmonary Embolism N Fibromyalgia N Hypertension N Osteoporosis N Gynecological HistoryNo gynecological history recorded. Obstetrics History GPAL:G 0 P 0 0 0 0 Past Encounters Encounter ID Performer Location Encounter Start Date Encounter Closed Date Diagnosis/Indication Diagnosis SNOMED-CT Code Diagnosis ICD10 Code Diagnosis Note [id number] MD [facility] [address] [place] [address] 07/14/2023 10:57:56 08/03/2023 11:55:42 History of total arthroplasty of right shoulder 958045136 Z96.611 History of reverse prosthetic total arthroplasty of right shoulder 1798726072 4907667 Z96.117 [id number] [facility]Y Mares [address] [place] [address] 09/13/2023 13:47:05 10/04/2023 13:04:37 History of operative procedure on shoulder 002693219 Z89.231 History of reverse prosthetic total arthroplasty of right shoulder 3536095097 1241027 Z96.611 Health Concerns Section Related Observation LastModified by Organization Detai ls LastModified Time None Recorded Concern Status LastModified by Organization Details LastModified Time None Recorded Advance Directives Directive None Recorded Payers Insurance Date Sequence Insurance Name Policy Number Policy Negron Covered Member ID Negron Member ID Guarantor Name 11/23/2023 1 [place]MEDICARE REPLACEMENT HMO) [id number] Nafisa Pérez Sloat [id number] Nafisa Kaur 11/17/2023 2 [place] [facility] Nafisa L Sloat [id number] Nafisa Kaur Notes Date Note Type Note Provider Name and Address Organization Details Recorded Time 07/14/2023 text/html .The patient pre sents today now approximately one week status post a right reverse total shoulder arthroplasty Performed for a 4 part proximal humeral fracture.. Doing well at this time. Continues to take anti-inflammatories and occasional narcotics. Compliant with sling use since surgery. Shows good understanding of pendulum and modified Codman exercises. No postoperative complications noted at this time.On physical examination, the patient presents today in a sling. Surgical incision sites are benign. Sutures/lani are removed and steri-strips reapplied without difficulty. Passive manipulation reveals no crepitus. Active-assisted elevation about 75 degrees, external rotation approximately 15-20, internal rotation to neutral. Anterior, middle, and posterior deltoid are intact. Axillary nerve function is intact. Median, radial, ulnar and musculocutaneous nerve function is intact. Biceps contour is normal. Ecchymosis is resolving. No warmth, no redness nor erythema that would suggest infection.X-RAY REPORT: Radiographs ordered, obtained and reviewed at [facility] today two views postoperative radiographs reveal good position of the indwelling total shoulder arthroplasty components and fixation.IMPRESSION: Status post total shoulder arthroplasty. Doing well at this time. Will follow a standard postoperative protocol. Prescriptions for physical therapy provided. Refill on prescriptions discussed and provided. Updated work notes. Recheck is anticipated in 6 weeks, sooner if problems or issues present. Kulwant Srinivasan MD [address] [place] [address] [address] [facility], [place], [address], [facility] 07/14/2023 12:21:51 09/13/2023 text/html I am seeing the patient today under the supervision of Dr. Parikh who was available but who did not see the patient. The patient returns today doing well 8 weeks status post a right reverse total shoulder arthroplasty. Has been compliant with postoperative restrictions, patient did report that she was unable to attend physical therapy to date but overall happy with her early progress with range of motion on her own. Has not done any strengthening on that side. PFMSH and ROS has been reviewed, updated, and signed by me and is located in the patient's chart. On physical examination, the patient presents today out of the sling. Surgical incision site is benign. Anterior, middle, and posterior deltoid are intact. Minimal atrophy. Axillary nerve function is intact. Passive manipulation of the shoulder reveals no crepitus. Active-assisted elevation to approximately 125, external rotation approximately 45, internal rotation to 20. Able to support the arm with antigravity strength once positioned overhead. No shoulder instability. No warmth, no redness nor erythema. No evidence for infection. No lymphadenopathy. Radiographs 2 views right shoulder ordered obtained and independently reviewed show well maintained total joint arthroplasty with good interfaces alignment no evidence of lysis or loosening no acute fractures appreciated. IMPRESSION: Doing well status post recent total shoulder arthroplasty. Will continue to follow a standard protocol. Do believe that she would significantly benefit from formal physical therapy and an updated prescription was given today. Discussed the importance of daily stretching and strengthening to achieve the best long-term outcome from the total shoulder arthroplasty. While they understand the majority of the recovery will likely be completed by month 3, patients who have been diligent with an ongoing stretching and strengthening program continue to report improvements in their total shoulder arthroplasty and shoulder function for 6 months. The patient continue to follow a standard protocol. Referred back to physical therapy until discharged to a home exercise program. Will continue to use anti-inflammatories p.r.n. Narcotic refills are not required. Updated work notes given. Recheck at approximately 4 months postoperatively. Fred Rdz PA-C [address], [place], [address], [facility] 09/13/2023 15:38:33 OBGyn Episode No OBEpisode recorded.
--- OUTSIDE RECORDS SUMMARY | 2024-11-01 20:09 | XMS_ITS | Clinical Summary ---
Author Organization [facility] [address] [place] [address] [place] [phone] Phone Care Team Providers Care Dry End Operator Name Role Phone Nettie Muñoz MD Primary Care Provider [phone] Allergies Active Allergy Reactions Criticality Noted Date Comments Aspirin Unknown 07/24/2024 Diphenhydramine Swelling High 01/15/2021 Penicillin G High 11/17/2006 Other Reaction(s): Other (See Comments), Rash/Dermatitis RASH, HIVES, DIFFICULTY BREATHING Salicylates High 11/17/2006 Aspirin : Other Reaction(s): Hives/Urticaria, Other (See Comments) HIVE, RASH AND DIFFICULTY BREATHING Shellfish Containing Products Swelling High 2023 Medications calcium carbonate/vitamin D3 (CALCIUM + D ORAL) 1 TAB QD Active DULoxetine (CYMBALTA) [address] capsule Take 1 capsule (60 mg total) by mouth 2 (two) times a day. Active metFORMIN (GLUCOPHAGE) 500 mg tablet Take 2 tablets (1,000 mg total) by mouth 2 (two) times a day with meals. 120 each 04/24/19 25 Active dulaglutide (Trulicity) 4.5 mg/0.5 mL pen injector injectionIndicatio ns:Diabetes mellitus type 2 with neurological manifestations (CMS/HCC V24, CMS/HCC V28) Inject 0.5 mL (4.5 mg total) under the skin every 7 (seven) days. 2 mL 04/24/19 25 Active insulin degludec (TRESIBA FlexTouch U-200) 200 unit/mL (3 mL) CONCENTRATED injection pen Inject 90 units SC at bedtime 45 mL 11 07/25/19 25 Active clotrimazole-betam ethasone (LOTRISONE) 1-0.05 % cream Apply topically 2 (two) times a day. 15 g 08/16/19 25 Active pen needle, diabetic 32 gauge x 5/32 needle Use daily with insulin 100 each 08/31/19 25 Active gabapentin (NEURONTIN) 800 mg tablet Take 1 tablet (800 mg total) by mouth every 8 (eight) hours. 270 tablet 09/14/19 25 Active Rexulti 2 mg tablet Take 1 tablet (2 mg total) by mouth 1 (one) time each day. 09/05/19 25 Active blood-glucose sensor (VigLink G7 Sensor) deviceIndications: DM (diabetes mellitus), type 2 with peripheral vascular complications ([facility] V24, [facility] V28) Box = Kit = EACHANGE SENSOR EVERY 10 DAYS 3 each 09/26/19 25 Active tiZANidine (ZANAFLEX) 4 mg tablet Take 1 tablet (4 mg total) by mouth at bedtime as needed for muscle spasms. 30 tablet 10/19/19 25 Active tiZANidine (ZANAFLEX) 4 mg tablet Take 1 tablet (4 mg total) by mouth at bedtime as needed for muscle spasms. 30 tablet 09/15/19 25 025 Discontin ued(Reord er) Active Problems Problem Noted Date Diagnosed Date Anxiety 06/13/2024 Humerus fracture 06/23/2023 Overview (03/04/2024): 2/ comminuted and impacted, anatomic and surgical neck of humerus Orbit fracture ([facility] V24, [facility] V28) 2023 Overview (03/04/2024): 2/ right Subdural hematoma ([facility] V24, [facility] V28) 10/2023 Overview (03/04/2024): 2 tiny, post fall Subcutaneous mass of left thumb 01/07/2023 Moderate episode of recurren t major depressive disorder ([facility] [place], [facility] V28) 10/07/2020 Overview (06/13/2024): Diabetes mellitus type 2 wit h neurological manifestations ([facility] V24, [facility] V28) 09/27/2020 Severe obesity (BMI 35.0-39. 9) with comorbidity ([facility] [place], [facility] V28) 01/01/2019 Diabetes mellitus with diabe tic cataract ([facility] [place]24, [facility] V28) 08/22/2017 Left carpal tunnel syndrome 05/23/2017 Overview (06/13/2024): 11/04: repeat EMG showed moderate to severe CTS bilaterally 2019: bilateral carpal tunnel releases Diabetic neuropathy ([facility] [place], [facility] V28) 1 DM (diabetes mellitus), type 2 with peripheral vascular complications ([facility] [place]24, [facility] V28) 02/23/2013 Fibromyalgia 01/19/2013 Overview (03/04/2024): 12/31: normal EMG/NCT of upper and lower extremities at office Mixed hyperlipidemia 06/23/2012 PVD (peripheral vascular disease) ([facility] [place]) 01/06/2012 Overview (03/04/2024): Decreased pedal pulses Rotator cuff tear 12/29/2010 Overview (06/13/2024): Right from a fall 06/26. Left shoulder surgery 2014 De Quervain's disease (tenosynovitis) 10/27/2010 Overview (03/04/2024): Right had surgery 11/27 Psoriasis 03/06/2010 Osteoarthritis of knee 06/06/2008 Overview (03/04/2024): Right, mild on xray 04/26; arthroscopy 2008; Euflexxa 2012 Cataract 11/17/2006 Overview (03/04/2024): left eye BRCA negative Resolved Problems Problem Noted Date Diagnosed Date Resolved Date Depression 06/13/2024 10/24/2024 Chronic instability of right knee 09/02/2022 06/19/2024 Encounters Date Type Department Care Team Description 10/24/2024 9:30 AM EDT Office Visit [address] [phone] Amara Layne PA Encounter for annual wellness visit (AWV) in Medicare patient (Primary Dx); Colon cancer screening; Severe obesity (BMI 35.0-39.9) with comorbidity ([facility] [place]24, [facility] V28); PVD (peripheral vascular disease) ([facility] V24); Mixed hyperlipidemia; DM (diabetes mellitus), type 2 with peripheral vascular complications ([facility] V24, [facility] V28); Anxiety; Current severe episode of major depressive disorder without psychotic features, unspecified whether recurrent ([facility] V24, [facility] V28); Type 2 diabetes mellitus with diabetic cataract, with long-term current use of insulin ([facility] V24, [facility] V28); Fibromyalgia; Diabetic polyneuropathy associated with type 2 diabetes mellitus ([facility] V24, [facility] V28); Moderate episode of recurrent major depressive disorder ([facility], [facility] V28); Diabetes mellitus type 2 with neurological manifestations ([facility] V24, [facility] V28) 09/12/2024 12:30 PM EDT Treatment [address] [phone] Mihaela Davidson, PT Chronic right-sided low back pain with right-sided sciatica (Primary Dx) 08/27/2024 9:00 AM EDT Evaluation [address] [phone] Mihaela Davidson, PT Chronic right-sided low back pain with right-sided sciatica 08/15/2024 1:30 PM EDT Office Visit [address] [phone] Dumont, Stephanie-Ivanna N, TELETYPESETTER MONITOR Rash (Primary Dx); Diabetes mellitus type 2 with neurological manifestations ([facility] V24, [facility] V28) 08/15/2024 Telephone Adult Medicine [address] [phone] Lauryn Nevarez MA RASH ON NECK from Last 3 Months Immunizations Name Administration Dates Next Due H1N1 Inj Preservative Free 05/05/2009 Influenza Quadravalent, MDCK , 0.5ml, preservative free (Flucelvax) 6mo and older 01/26/2023,03/02/2021,02/19/2020,12/27 Influenza Quadravalent, MDCK , 0.5ml, with preservative (Flucelvax) 6mo and older 01/22/2018,02/06/2017 Influenza trivalent, 0.5mL, preservative free (Fluarix; FluLaval; Fluzone) ages 6mo and older (Afluria) 3 years and older 01/11/2016,01/27/2015,01/25/2014,02/23,02/23/2012,02/12/2011,02/07/2010 ,05/05/2009,02/01/2008,02/17/2007 Pneumococcal conjugate 20 va lent (Prevnar 20, PCV 20) 2mo and older 06/19/2024 Pneumococcal polysaccharide 23 valent (Pneumovax 23) 2yo and older 11/17/2006 Td Tetanus diptheria (Tdvax) 7yo and older 08/13/2016 Tdap Tetanus diptheria acell ular pertussis (Boostrix; Adacel) 7yo and older 06/13/2023,02/17/2007 Surgical History Surgery Date Site/Laterality Comments KNEE SURGERY 04/18/1991 Arthroscopy on the right CATARACT EXTRACTION bilat ROTATOR CUFF REPAIR 10/25/2011 [place]: right 2011, left, 08/29 OTHER SURGICAL HISTORY 11/17/2011 thumb extensor tendonitis repair (right) CARPAL TUNNEL RELEASE Bilateral SCREENING MAMMOGRAM 02/10/2023 Bilateral Medical History Medical History Date Comments Unspecified cataract 11/17/2006 : left eye Osteoarthritis of knee 06/06/2008 : Right, mild on xray 04/26 De Quervain's disease (tenosynovitis) 10/27/2010 Right had surgery 11/27 Rotator cuff tear 12/29/2010 Right from a f all 06/26. Seen on arthrogram 11/26 BRCA negative 01/09/2014 Diabetes mellitus type 2 wit h neurological manifestations ([facility] [place], [facility] V28) 09/27/2020 Diabetic neuropathy ([facility] [place], [facility] V28) 01/27/2015 Humerus fracture 06/23/2023 : 06/11 comminut ed and impacted, anatomic and surgical neck of humerus Orbit fracture ([facility] [place], [facility] V28) 06/23/202306/11 right Anxiety 06/13/2024 Family History Medical History Relation Name Comments Ovarian cancer Aunt 1 maternal side Breast cancer Aunt 2 m aunts x 3 mothers side Lung cancer Aunt 3 mothers side. Diabetes Father Ovarian cancer Maternal Grandmother Breast cancer Mother age 79 BRCA 1; HTN, o steoporosis Other: Other(BRCA positive) Other mothers niece and tw o of her nieces daughter are BRCA + Liver cancer Uncle mothers side, a lcohol abuse Colon cancer Neg Hx Uterine cancer Neg Hx Relation Name Status Comments Aunt 1 Aunt 2 m aunts x 3 Aunt 3 Father Maternal Grandmother Mother age 79 Alive Other Uncle Social History Tobacco Use Types Packs/Day Years Used Date Smoking Tobacco: Never Smokeless Tobacco: Never Tobacco Cessation:Counseling Given: Not Answered Alcohol Use Standard Drinks/Week Comments No 0 (1 standard drink = 0.6 oz pur e alcohol) Housing Instability Answer Date Recorde d Are you worried that in the next 2 months you may not have stable housing? No 10/24/2024 Food Access & Nutrition Answer Date Rec orded Do you have access to a vari ety of food including fruits and vegetables? No 10/24/2024 Access to Healthcare Answer Date Record ed Within the last 3 months, ho w many times did you visit the emergency department for your medical care? 0 10/24/2024 Health Literacy Answer Date Recorded How often do you need to hav e someone help you when you read instructions, pamphlets, or other written material from your doctor or pharmacy? Never 10/24/2024 Caregiver: How often do you need to have someone help you when you read instructions, pamphlets, or other written material from your doctor or pharmacy? Not on file 10/24/2024 Financial Risk Answer Date Recorded How hard is it for you to pa y for the very basics like food, housing, medical care, and air conditioning / heating? Not very hard 10/24/2024 Transportation Answer Date Recorded Has the lack of transportati on kept you from meetings, work, or from getting things needed for daily living? No Has the lack of transportati on kept you from medical appointments or from getting medications? No 10/24/2024 Social Isolation Answer Date Recorded How often do you feel lonely or isolated from th ose around you? Never 10/24/2024 Food Risk Answer Date Recorded Within the past 12 months we worried whether our food would run out before we got money to buy more. Never true 10/24/2024 Within the past 12 months th e food we bought just didn't last and we didn't have money to get more. Never true 10/24/2024 Dependent Care Answer Date Recorded Do you need help finding or paying for care for your loved ones. For example, child care associate teacher or elderly care for an older adult? No 10/24/2024 Education Answer Date Recorded Do you think completing more education or training, like finishing a GED, going to college, or learning a trade, would be helpful for you? N/A 10/24/2024 Employment and Income Answer Date Recor ded During the last four weeks, have you been actively looking for work? No 10/24/2024 Living Situation Answer Date Recorded What is your living situation? 0 10/24/2024 Comments Unknown Sex and Gender Information Value Date Recorded Sex Assigned at Not on file Legal Sex Female 6:46 AM EST Gender Identity Not on file Sexual Orientation Not on file Obstetrics History Last Filed Vital Signs Vital Sign Reading Time Taken Comments Blood Pressure 93/67 10/24/2024 9:22 AM EDT Pulse 106 10/24/2024 9:22 AM EDT Temperature 36.1 C (96.9 F) 10/24/2024 9:22 AM EDT Respiratory Rate 16 10/24/2024 9:22 AM EDT Oxygen Saturation 96% 10/24/2024 9:22 AM EDT Inhaled Oxygen Concentration - - Weight 105 kg (231 lb 3.2 oz) 10/24/2024 9:22 AM EDT Height 165.1 cm (5' 5 ) 10/24/2024 9:22 AM EDT Body Mass Index 38.47 10/24/2024 9:22 AM EDT Plan of Treatment Upcoming Encounters Date Type Department Care Team (Late st Contact Info) Description 11/07/2024 10:15 AM EDT Office Visit Orthopedic Surgery - [place] [address] [phone] Baltazar Freeman DPM [address] [address] 12/18/2024 9:45 AM EDT Office Visit Endocrinology [address] [phone] Corine Campbell PA [address] [place] [address] 04/29/2025 11:00 AM EST Office Visit Adult Medicine [address] [phone] Nettie Muñoz MD [address] [place] [address] Health Maintenance Due Date Last Done Comments Hepatitis B Vaccines (1 of 3 - 19+ 3-dose series) 1984 Zoster Vaccines (1 of 2) 09/23/2015 Colorectal Cancer Screening: Stool Based Tests (FOBT/FIT) 03/27/2022 HIV Screening 03/27/2022 COVID-19 Vaccine ( season) 2023 12/01/2020, 11/03/2020 Diabetes: Annual Retina Eye Exam 10/09/2024 10/10/2023 Influenza Vaccine (#1) 2024 , 03/02/2021, 02/19/2020, Additional history exists Diabetes: Blood Sugar Control Test (HGBA1C) 01/23/2025 07/24/2024, 01/20/2024, 12/21/2023, Additional history exists Breast Cancer Screening 02/10/2025 02/11/20 23, 08/02/2020, 01/07/2017 Diabetes: Annual Foot Exam 07/09/2025 07/09/2024, Diabetes: Annual Urine Albumin-Creatinine Ratio (uACR) 07/24/2025 07/24/2024, 12/21/2023 Diabetes: Annual GFR (Glomerular Filtration Rate) 07/24/2025 07/24/2024, 12/21/2023, 12/21/2023 Medicare Annual Wellness Visit 10/24/2025 10/24/2024 Social Influencers of Health Screening 10/24/2025 10/24/2024 Cervical Cancer Screening: HPV 05/26/2028 05/26/2023 Cholesterol Screening (Lipid Panel) 07/24/2029 07/24/2024, 01/20/2024, 12/21/2023, Additional history exists DTaP,Tdap,and Td Vaccines (4 - Td or Tdap) 06/13/2033 06/13/2023, 08/13/2016, 02/17/2007 RSV Immunization Adult Patients (1 - 1-dose 75+ series) 2040 Hepatitis C Screening Completed 05/09/2023 Pneumococcal Vaccine: 50+ Years Completed 06/19/2024, 11/17/2006 Depression Screening Completed 10/24/2024 HIB Vaccines Aged Out No longer eligi ble based on patient's age to complete this topic HPV Vaccines Aged Out No longer eligi ble based on patient's age to complete this topic Hepatitis A Vaccines Aged Out No long er eligible based on patient's age to complete this topic IPV Vaccines Aged Out No longer eligi ble based on patient's age to complete this topic MMR Vaccines Aged Out No longer eligi ble based on patient's age to complete this topic Meningococcal ACWY Vaccine Aged Out N o longer eligible based on patient's age to complete this topic Meningococcal B Vaccine Aged Out No l onger eligible based on patient's age to complete this topic RSV Immunization Patients Under 20 months Aged Out No longer eligible based on patient's age to complete this topic Varicella Vaccines Aged Out No longer eligible based on patient's age to complete this topic Goals Goal Patient Goal Type Associated Problems Recent Progress Patient-Stated? Author LTG - 8 visits General No Mihaela Davidson, NIMCO Note: Patient reports subjective decrease in neck pain and low back pain Patient is able to achieve 50 degrees of lumbar flexion Patient is able to achieve 20 degrees of lumbar side bending Patient is able to achieve 20 degrees of lumbar rotation Patient is able to achieve 25 degrees of cervical side bending Mild myofascial restriction to bilateral erector spinae and upper traps Patient is independent and compliant with HEP Procedures Procedure Name Priority Date/Time Associated Diagnosis Comments MICROALBUMIN CREATININE URINE RATIO Routine 07/24/2024 2:26 PM EDT Diabetes mellitus type 2 with neurological manifestations (CMS/HCC V24, CMS/HCC V28) BASIC METABOLIC PANEL Routine 07/24/2024 2:26 PM EDT Diabetes mellitus type 2 with neurological manifestations (CMS/HCC V24, CMS/HCC V28) HEMOGLOBIN A1C Routine 07/24/2024 2:26 PM EDT Diabetes mellitus type 2 with neurological manifestations (CMS/HCC V24, CMS/HCC V28) LIPID PANEL WITH REFLEX TO DIRECT LDL Routine 07/24/2024 2:26 PM EDT Diabetes mellitus type 2 with neurological manifestations (CMS/HCC V24, CMS/HCC V28) DIABETES EYE EXAM Routine 10/10/2023 HPV Routine 05/26/2023 HEPATITIS C SCREENING Routine 05/09/2023 DIABETES FOOT EXAM Routine 03/08/2023 SCREENING MAMMOGRAPHY BI 2-VIEW BREAST INC CAD Routine 02/10/2023 8:53 AM EDT Encounter for screening mammogram for malignant neoplasm of breast from Last 3 Months or Most Recently Relevant to Health Maintenance Results * Lipid panel with reflex to direct LDL (07/24/2024 2:26 PM EDT) Cholesterol 158 0 - 200 mg/dL LAB CHEMISTRY METHOD 07/24/2024 5:32 PM EDT [facility] Triglycerides 118 0 - 150 mg/dL LAB CHEMISTRY METHOD 07/24/2024 5:32 PM EDT [facility] HDL 47 >=40 mg/dL LAB CHEMISTRY METHOD 07/24/2024 5:32 PM EDT [facility] LDL Calculated 87 0 - 100 mg/dL LAB CHEMISTRY METHOD 07/24/2024 5:32 PM EDT [facility] VLDL Cholesterol Chris 23.6 mg/dL LAB CHEMISTRY METHOD 07/24/2024 5:32 PM EDT [facility] Non HDL Chol. (LDL+VLDL) 111 <145 mg/dL LAB CHEMISTRY METHOD 07/24/2024 5:32 PM EDT [facility] Chol/HDL Ratio 3.4 0.0 - 4.4 LAB CHEMISTRY METHOD 07/24/2024 5:32 PM EDT [facility] Blood Venous blood specimen / Unknown Venipuncture / Unknown 07/24/2024 2:26 PM EDT 07/24/2024 2:35 PM EDT Corine CHEN LAB BLOOD ORDERABLES Final Result [facility] [address] [place] [address], * Microalbumin creatinine urine ratio (07/24/2024 2:26 PM EDT) Creatinine, Urine 189.0 mg/dL LAB CHEMISTRY METHOD 07/24/2024 6:24 PM EDT [facility] Microalb, Ur 13.6 0.0 - 29.0 mg/L LAB CHEMISTRY METHOD 07/24/2024 6:24 PM EDT [facility] Microalb/Creat Ratio 7 <30 mg/g creat LAB CHEMISTRY METHOD 07/24/2024 6:24 PM EDT [facility] Urine Urine specimen from urethra / Unknown Non-blood Collection / Unknown 07/24/2024 2:26 PM EDT 07/24/2024 2:35 PM EDT Corine CHEN LAB URINE ORDERABLES Final Result Performing Organization Address [facility]/ZIP Co de Phone Number [facility] [address] [place] [address], [place] [phone] * (ABNORMAL) Hemoglobin A1c (07/24/2024 2:26 PM EDT) Hemoglobin A1C 6.9(H) <6.5 % LAB CHEMISTRY METHOD 07/24/2024 9:23 PM EDT [facility] Mean Bld Glu Estim. 151 mg/dL LAB CHEMISTRY METHOD 07/24/2024 9:23 PM EDT [facility] Blood Venous blood specimen / Unknown Venipuncture / Unknown 07/24/2024 2:26 PM EDT 07/24/2024 2:35 PM EDT Corine CHEN LAB BLOOD ORDERABLES Final Result Performing Organization Address [facility]/ZIP Co de Phone Number [facility] [address] [place] [address], [place] [phone] * (ABNORMAL) Basic metabolic panel (07/24/2024 2:26 PM EDT) Pathologist [facility] Sodium 137 133 - 145 mmol/L LAB CHEMISTRY METHOD 07/24/2024 5:32 PM EDT [facility] Potassium 4.3 3.5 - 5.5 mmol/L LAB CHEMISTRY METHOD 07/24/2024 5:32 PM EDT [facility] Chloride 101 96 - 110 mmol/L LAB CHEMISTRY METHOD 07/24/2024 5:32 PM EDT [facility] CO2 32 21 - 32 mmol/L LAB CHEMISTRY METHOD 07/24/2024 5:32 PM EDT [facility] Anion Gap 4 3 - 11 LAB CHEMISTRY METHOD 07/24/2024 5:32 PM EDT [facility] Glucose 143(H) 70 - 100 mg/dL LAB CHEMISTRY METHOD 07/24/2024 5:32 PM [facility] BUN 14 5 - 25 mg/dL LAB CHEMISTRY METHOD [facility]/24[facility]24 [facility] Creatinine 0.88 0.50 - 1.10 mg/dL LAB CHEMISTRY METHOD 07/24/2024 5:32 PM EDT [facility] eGFR 76 >=60 mL/min/1. 73m2 LAB CHEMISTRY METHOD 07/24/2024 5:32 PM [facility] Comment:Calculation based on the Chronic Kidney Disease Epidemiology Collaboration (CKD-EPI) equation refit without adjustment for race. BUN/Creatinine Ratio 15.9 LAB CHEMISTRY METHOD 07/24/2024 5:32 PM [facility] Calcium 9.7 8.5 - 10.5 mg/dL LAB CHEMISTRY METHOD 07/24/2024 5:32 PM [facility] Blood Venous blood specimen / Unknown Venipuncture / Unknown 07/24/2024 2:26 PM EDT 07/24/2024 2:35 PM EDT Corine CHEN LAB BLOOD ORDERABLES Final Result [facility] [address] [place] [address], * Diabetes Eye Exam (10/10/2023) [facility] Diabetes: Annual Retina Eye Exam ABSTRACTED Historical Provider HEALTH MAINTENANCE Final Result * Cervical Cancer Screening: HPV (05/26/2023) [facility] Cervical Cancer Screening: HPV NEGATIVE, ABSTRACTED Result [facility] Historical Provider HEALTH MAINTENANCE Final Result * Hepatitis C Screening (05/09/2023) Hepatitis C Screening ABSTRACTED Result [facility] Historical Provider [facility] Final Result * Diabetes Foot Exam (03/08/2023) Diabetes: Annual Foot Exam ABSTRACTED Result [facility] Provider [facility] Final Result * SCREENING MAMMOGRAPHY BI 2-VIEW BREAST INC CAD (02/10/2023 8:53 AM EDT) Anatomical Region Laterality Modality Radiographic Jasmin ging 07/27/2022 9:24 AM EDT Narrative 02/10/2023 11:51 AM EDT This is a summary report. The complete report is available in the patient's medical record. If you cannot access the medical record, please contact the sending organization for a detailed fax or copy. Full field digital screening tomosynthesis mammography, reviewed with CAD and compared to previous. The breasts are composed mostly of fatty tissue. No suspicious mass, architectural distortion or suspicious calcifications are identified. IMPRESSION: : No mammographic evidence of malignancy. BIRADS 1-Negative; N. 5 year breast cancer risk assessment 2.5 % Lifetime breast cancer risk assessment 14.9 % Breast cancer risk category Moderate (15% - 20%) Procedure Note Carlos Mckeon MD - 05/23/2023 This is a summary report. The complete report is available in thepatient's medical record. If you cannot access the medical record, pleasecontact the sending organization for a detailed fax or copy. Full field digital screening tomosynthesis mammography, reviewed with CADand compared to previous. The breasts are composed mostly of fatty tissue.No suspicious mass, architectural distortion or suspicious calcificationsare identified. IMPRESSION: : No mammographic evidence of malignancy. BIRADS 1-Negative; N. 5 year breast cancer risk assessment 2.5 % Lifetime breast cancer risk assessment 14.9 % Breast cancer risk category Moderate (15% - 20%) Result [facility] Deisi CHEN IMG XR PROCEDURES Final Result from Last 3 Months or Most Recently Relevant to Health Maintenance [place] Care Teams Dry End Operator Relationship Specialty Start Date End Date Nettie Muñoz MD [address] [place] [address] PCP - General Internal Medicine 12/19/19
--- OUTSIDE RECORDS SUMMARY | 2024-11-01 20:09 | XMS_ITS | Patient Health Record ---
Author Organization [facility] Address [address] [facility] [address] [place] [address] Care Team Providers Care Technology Director Name Role Phone NANDA HANKS Primary Care Provider [phone] Gato Delgado Unavailable Unavailable Allergies Allergen (clinical drug ingredient) Drug/Non Drug Allergy documented on EMR Reaction Allergy Type Onset Date Status Unknown Drug Allergy Active diphenhydramine Benadryl Unknown Drug Allergy A ctive Substance with penicillin structure and antibacterial mechanism of action (substance) Penicillins Unknown Drug Allergy Active Reason For Referral No Information Medications Medication SIG (Take, Route, Frequency, Duration) Notes Start Date End Date Status CeleBREX 200 MG 1 capsule with food Orally bid Active Gabapentin 800 MG 1 tablet Orally 3 times a day Active predniSONE 5 MG (21) as directed Orally daily for 7 days Take 7 tablets on day 1, 6 tablets on day 2, 5 tablets on day 3, 4 tablets on day 4, three tablets on day 5, two tablets on day 6, and one tablet on day 7 04/22/2021 Active glipiZIDE 10 MG 1 tablet 30 minutes before breakfast Orally bid Not-Taking Lantus 100 UNIT/ML as directed Subcutaneous 68 unit at bed time Active Trulicity 1.5 MG/0.5ML as directed Subcutaneous once a week Active metFORMIN HCl 1000 MG 1 tablet with a meal Orally bid Active Problems Problem Type SNOMED Code ICD Code Onset Dates Problem Status W/U Status Risk Notes Problem 31512258 Type 2 diabetes mellitus with diabetic polyneuropathy (E11.42) Active confirmed Problem 42176656 Type 2 diabetes mellitus with other circulatory complications (E11.59) Active confirmed Problem 552782801 longterm (current) use of insulin (Z79.4) Active confirmed Problem 876418415 Psoriatic arthritis (L40.50) Active confirmed Problem 91748306 Psoriatic arthropathy (L40.50) Active confirmed Problem [id number] Tarsal tunnel syndrome of right side (G57.51) Active confirmed Plan Of Treatment Pending Test Test Name Order Date X ray : Foot, right 3v 04/22/2021 Insurance Providers Payer Name Payer Address Payer Phone Subscriber Number Group Number Insured Name Patient Relationship to Insured Coverage Start Date Coverage End Date [facility] [address] [place] [address] [phone] [id number] Nafisa Cole Self - patient is the insured Medical (General) History Medical History History ICD Code PVD Diabetes mellitus 2 with peripheral vasc ular diseas Diabetes mellitus 2 with neuropathy obesity Diabetes mellitus 2 with catarct hyperlipidemia carpal tunnel syndrome fibromyalgia osteoarthritis of knee psoriasis Surgical History Surgery Date(Month/Year) knee surgery shoulder surgery cataract removal
[2024-11-01 20:24] VITALS: BP 126/70; PULSE 98; RESP 18; TEMP 36.9; O2SAT 98
[2024-11-01 22:17] VITALS: BP 126/70; PULSE 98; RESP 18; TEMP 36.9; O2SAT 98
[2024-11-01 22:24] VITALS: BP 120/70; PULSE 99; RESP 16; TEMP 36.1; O2SAT 94
== END 2024-11-01 22:26 | disposition home or self-care (01) ==
PROVIDERS: Emergency Provider Internal Medicine; PCP Internal Medicine
DX: S92.501A Displaced unspecified fracture of right lesser toe(s), initial encounter for closed fracture (principal); M25.571 Pain in right ankle and joints of right foot; W01.0XXA Fall on same level from slipping, tripping and stumbling without subsequent striking against object, initial encounter; Y93.01 Activity, walking, marching and hiking; Y92.9 Unspecified place or not applicable; Y99.8 Other external cause status
CPT/HCPCS: 73610; 73620; 99284

== ENCOUNTER → 2024-11-01 18:39 | Outpatient (BNV) | payer MEDICARE, MEDICAID, SELFPAY | PROVIDERS: PCP Internal Medicine; Visit Provider Radiology Diagnostic Radiology | DX: M25.571 Pain in right ankle and joints of right foot (principal); S92.514A Nondisplaced fracture of proximal phalanx of right lesser toe(s), initial encounter for closed fracture; W19.XXXA Unspecified fall, initial encounter | CPT/HCPCS: 73610; 73620 ==

== ENCOUNTER 2025-01-22 09:50 | Outpatient (REF) | payer MEDICARE, MEDICAID, SELFPAY ==
--- NOTE | 2025-01-22 | EMG_ITS ---
Chief complaint: Numbness and tingling in left arm Reason for referral: Anesthesia of skin, Paresthesia of skin Referred by:?Yara Christianson Procedure done: Left upper extremity NCS/EMG Left median and ulnar motor responses were obtained. Left median and ulnar mixed sensory studies and radial sensory study was obtained. EMG needle examination was performed. Left median motor distal latency was borderline while median mixed distal latencies was significantly prolonged with slow conduction velocity. Long duration polyphasic motor unit potentials were noted in left lower paraspinal and also in limb muscles. Impression: 1. [id number] left median neuropathy across carpal tunnel 2. Chronic left mid to lower cervical radiculopathy MTDD
--- OUTSIDE RECORDS SUMMARY | 2025-01-22 11:19 | XMS_ITS | Clinical Summary ---
Author Organization [facility] [address] [place] [address] [place] [phone] Phone Care Team Providers Care Screwdown Operator Name Role Phone Nettie Muñoz MD Primary Care Provider [phone] Allergies Active Allergy Reactions Criticality Noted Date [...] times a day with meals. 120 each 11 5 Active dulaglutide (Trulicity) 4.5 mg/0.5 mL pen injector injectionIndicatio ns:Diabetes mellitus type 2 with neurological manifestations (CMS/HCC V24, CMS/HCC V28) Inject 0.5 mL (4.5 mg total) under the skin every 7 (seven) days. 2 mL 11 5 Active clotrimazole-betam ethasone (LOTRISONE) 1-0.05 % cream Apply topically 2 (two) times a day. 15 g 5 Active pen needle, diabetic 32 gauge x needle Use daily with insulin 100 each 5 Active Rexulti 2 mg tablet Take 1 tablet (2 mg total) by mouth 1 (one) time each day. 5 Active blood-glucose sensor (SMRxTcom G7 Sensor) deviceIndications: DM (diabetes mellitus), type 2 with peripheral vascular complications ([facility] V24, [facility] V28) Box = Kit = EACHANGE SENSOR EVERY 10 DAYS 3 each 5 Active tiZANidine (ZANAFLEX) 4 mg tablet TAKE 1 TABLET(4 MG) BY MOUTH AT BEDTIME NEEDED FOR MUSCLE SPASMS 30 tablet 5 5 Active gabapentin (NEURONTIN) 800 mg tablet TAKE 1 TABLET(800 MG) BY MOUTH EVERY 8 HOURS 270 tablet 1 5 Active insulin degludec (TRESIBA FlexTouch U-200) 200 unit/mL (3 mL) CONCENTRATED injection pen Inject 95 units SC at bedtime 45 mL 5 Active Active Problems Problem Noted Date Diagnosed Date Anxiety 06/13/2024 Humerus fracture 06/23/2023 Overview (03/04/2024): 2 comminuted and impacted, anatomic and surgical neck of humerus Orbit fracture ([facility] V24, [facility] V28) 2023 Overview (03/04/2024): 2/ right Subdural hematoma ([facility] V24, [facility] V28) 10/2023 Overview (03/04/2024): 2/ tiny, post fall Subcutaneous mass of left thumb 01/07/2023 Moderate episode of recurren t major depressive disorder ([facility] V24, [facility] V28) 10/07/2020 Overview (06/13/2024): Diabetes mellitus type 2 wit h neurological manifestations ([facility] V24, [facility] V28) 09/27/2020 Severe obesity (BMI 35.0-39. 9) with comorbidity ([facility] V24, [facility] V28) 01/01/2019 Diabetes mellitus with diabe tic cataract ([facility] V24, [facility] V28) 08/22/2017 Left carpal tunnel syndrome 05/23/2017 Overview (06/13/2024): 11/04: repeat EMG showed moderate to severe CTS bilaterally 2019: bilateral carpal tunnel releases Diabetic neuropathy ([facility] V24, [facility] V28) 1 DM (diabetes mellitus), type 2 with peripheral vascular complications ([facility] V24, [facility] V28) 02/23/2013 Fibromyalgia 01/19/2013 Overview (03/04/2024): 12/31: normal EMG/NCT of upper and lower extremities at office Mixed hyperlipidemia 06/23/2012 PVD (peripheral vascular disease) ([facility] V24) 01/06/2012 Overview (03/04/2024): Decreased pedal pulses Rotator cuff tear 12/29/2010 Overview (06/13/2024): Right from a fall 06/26. Left shoulder surgery 2013 De Quervain's disease (tenosynovitis) 10/27/2010 Overview (03/04/2024): Right had surgery 11/27 Psoriasis 03/06/2010 Osteoarthritis of knee 06/06/2008 Overview (03/04/2024): Right, mild on xray 04/26; arthroscopy 2008; Euflexxa 2012 Cataract 11/17/2006 Overview (03/04/2024): left eye BRCA negative Resolved Problems Problem Noted Date Diagnosed Date Resolved Date Depression 06/13/2024 10/24/2024 Chronic instability of right knee 09/02/2022 06/19/2024 Encounters Date Type Department Care Team Description 12/20/2024 8:30 AM EDT Office Visit Endocrinology - [place] [address] [place], [place] [phone] Corine Campbell PA DM (diabetes mellitus), type 2 with peripheral vascular complications ([facility]/HCC V24, CMS/HCC V28) (Primary Dx); Mixed hyperlipidemia 11/16/2024 10:30 AM EDT Office Visit Orthopedic Surgery [facility] [address] [facility] [address] [facility] [address] [place] [phone] Yara Christianson MD Numbness and tingling in left arm (Primary Dx) 11/07/2024 10:15 AM EDT Office Visit Orthopedic Surgery [facility] [address] [facility] [address] [place] [phone] Baltazar Freeman DPM Controlled type 2 diabetes mellitus with diabetic polyneuropathy, without long-term current use of insulin ([facility] V24, CMS/[facility] V28) (Primary Dx); Achilles tendinitis of right lower extremity; Lumbosacral radiculopathy; Hammer toes of both feet; Fracture of phalanx of right fifth toe; Onychomycosis 10/24/2024 9:30 AM EDT Office Visit Adult Medicine [address] [phone] Amara Layne PA Encounter for annual wellness visit (AWV) in Medicare patient (Primary Dx); Colon cancer screening; Severe obesity (BMI 35.0-39.9) with comorbidity (CMS/HCC V24, CMS/HCC V28); PVD (peripheral vascular disease) ([facility]/HCC V24); Mixed hyperlipidemia; DM (diabetes mellitus), type 2 with peripheral vascular complications (CMS/HCC V24, CMS/HCC V28); Anxiety; Current severe episode of major depressive disorder without psychotic features, unspecified whether recurrent (CMS/HCC V24, CMS/HCC V28); Type 2 diabetes mellitus with diabetic cataract, with long-term current use of insulin (CMS/HCC V24, CMS/HCC V28); Fibromyalgia; Diabetic polyneuropathy associated with type 2 diabetes mellitus (CMS/HCC V24, CMS/HCC V28); Moderate episode of recurrent major depressive disorder ([facility] V24, CMS/HCC V28); Diabetes mellitus type 2 with neurological manifestations ([facility] V24, [facility] V28) from Last 3 Months Immunizations Immunization Administration Dates Next Due H1N1 Inj Preservative [...] a f all 06/26. Seen on arthrogram 8/11 BRCA negative 01/09/2014 Diabetes mellitus type 2 wit h neurological manifestations ([facility] V24, [facility] V28) 09/27/2020 Diabetic neuropathy ([facility] V24, [facility] V28) 01/27/2015 Humerus fracture 06/23/2023 : 06/11 comminut ed and impacted, anatomic and surgical neck of humerus Orbit fracture ([facility] V24, [facility] V28) 06/23/202306/11 right Anxiety 06/13/2024 Family History [...] Record ed Within the last 3 months, kathya john many times did you visit the emergency [...] care for your loved ones. For example, childbirth and infant care teacher or elderly care for an older [...] Date Recorded What is your living situation? Unrecognized valu e 10/24/2024 Comments Unknown Sex and Gender Information Value Date Recorded Sex Assigned at Not on file Legal Sex Female 6:46 AM EST Gender Identity Not on file Sexual Orientation Not on file Obstetrics History Last Filed Vital Signs Vital Sign Reading Time Taken Comments Blood Pressure 100/62 12/20/2024 8:25 AM EDT Pulse 79 12/20/2024 8:25 AM EDT Temperature 36.1 C (96.9 F) 12/20/2024 8:25 AM EDT Respiratory Rate 18 12/20/2024 8:25 AM EDT Oxygen Saturation 96% 12/20/2024 8:25 AM EDT Inhaled Oxygen Concentration - - Weight 105 kg (232 lb) 12/20/2024 8:25 AM EDT Height 165.1 cm (5' 5 ) 12/20/2024 8:25 AM EDT Body Mass Index 38.61 12/20/2024 8:25 AM EDT Plan of Treatment Upcoming Encounters Date Type Department Care Team (Late st Contact Info) Description 02/07/2025 10:15 AM EDT Office Visit Orthopedic Surgery - [place] [address] [phone] Baltazar Freeman DPM [address] [facility] [place] [address] [place] [address] 04/04/2025 1:00 PM EST Office Visit Endocrinology [address] [phone] Corine Campbell PA [address] [place] [address] 04/29/2025 11:00 AM EST Office Visit Adult Medicine [address] [phone] Nettie Muñoz MD [address] [place], [place] Health Maintenance Due Date Last Done Comments Hepatitis B Vaccines (1 of 3 - 19+ 3-dose series) 1984 Zoster Vaccines (1 of 2) 09/23/2015 Colorectal Cancer Screening: Stool Based Tests (FOBT/FIT) 03/27/2022 HIV Screening 03/27/2022 COVID-19 Vaccine ( season) 2024 12/01/2020, 11/03/2020 Influenza Vaccine (#1) 2024 , 01/26/2023, 03/02/2021, Additional history exists Breast Cancer Screening 02/10/2025 02/11/20 23, 08/02/2020, 01/07/2017 Diabetes: Blood Sugar Control Test (HGBA1C) 06/19/2025 12/20/2024, 07/24/2024, 01/20/2024, Additional history exists Diabetes: Annual Foot Exam 07/09/2025 07/09/2024, Diabetes: Annual Urine Albumin-Creatinine Ratio (uACR) 07/24/2025 07/24/2024, 12/21/2023 Diabetes: Annual GFR (Glomerular Filtration Rate) 07/24/2025 07/24/2024, 12/21/2023, 12/21/2023 Diabetes: Annual Retina Eye Exam 10/02/2025 10/02/2024, 10/10/2023 Medicare Annual Wellness Visit 10/24/2025 10/24/2024 Social [...] - 8 visits General No Mihaela Davidson, PT Note: Patient reports subjective decrease in neck [...] Procedure Name Priority Date/Time Associated Diagnosis Comments HEMOGLOBIN A1C Routine 12/20/2024 9:05 AM EDT DM (diabetes mellitus), type 2 with peripheral vascular complications (CMS/HCC V24, CMS/HCC V28) MICROALBUMIN CREATININE URINE RATIO Routine 07/24/2024 2:26 [...] Recently Relevant to Health Maintenance Results * (ABNORMAL) Hemoglobin A1c (12/20/2024 9:05 AM EDT) Hemoglobin A1C 6.9(H) <6.5 % LAB CHEMISTRY METHOD 12/20/2024 11:18 AM EDT [facility] Mean Bld Glu Estim. 151 mg/dL LAB CHEMISTRY METHOD 12/20/2024 11:18 AM EDT [facility] Blood Venous blood specimen / Unknown Venipuncture / Unknown 12/20/2024 9:05 AM EDT 12/20/2024 9:05 AM EDT us Corine CHEN LAB BLOOD ORDERABLES Final Result [facility] [address] [place] [address], [place] [phone] * Lipid panel with reflex to direct LDL (07/24/2024 2:26 PM EDT) Cholesterol 158 0 - 200 mg/dL LAB CHEMISTRY METHOD 07/24/2024 5:32 PM EDT [facility] Triglycerides 118 0 - 150 mg/dL LAB CHEMISTRY METHOD 07/24/2024 5:32 PM EDT [facility] HDL 47 >=40 mg/dL LAB CHEMISTRY METHOD 07/24/2024 5:32 PM EDT [facility] LDL Calculated 87 0 - 100 mg/dL LAB CHEMISTRY METHOD 07/24/2024 5:32 PM EDT [facility] VLDL Cholesterol Chris 23.6 mg/dL LAB CHEMISTRY METHOD 07/24/2024 5:32 PM EDT [facility] Non HDL Chol. (LDL+VLDL) 111 <145 mg/dL LAB CHEMISTRY METHOD 07/24/2024 5:32 PM EDT [facility] Chol/HDL Ratio 3.4 0.0 - 4.4 LAB CHEMISTRY METHOD 07/24/2024 5:32 PM EDT [facility] Blood Venous blood specimen / Unknown Venipuncture / Unknown 07/24/2024 2:26 PM EDT 07/24/2024 2:35 PM EDT us Corine CHEN LAB BLOOD ORDERABLES Final Result [facility] [address] [place] [address], * Microalbumin creatinine urine ratio (07/24/2024 2:26 PM EDT) Creatinine, Urine 189.0 mg/dL LAB CHEMISTRY METHOD 07/24/2024 6:24 PM EDT [facility] Microalb, Ur 13.6 0.0 - 29.0 mg/L LAB CHEMISTRY METHOD 07/24/2024 6:24 PM EDT [facility] Microalb/Creat Ratio 7 <30 mg/g creat LAB CHEMISTRY METHOD 07/24/2024 6:24 PM EDT [facility] Urine Urine specimen from urethra / Unknown Non-blood Collection / Unknown 07/24/2024 2:26 PM EDT 07/24/2024 2:35 PM EDT Corine CHEN LAB URINE ORDERABLES Final Result [facility] [address] [place] [address], [place] [phone] * (ABNORMAL) Basic metabolic panel (07/24/2024 2:26 PM EDT) Sodium 137 133 - 145 mmol/L LAB CHEMISTRY METHOD 07/24/2024 5:32 PM EDT [facility] Potassium 4.3 3.5 - 5.5 mmol/L LAB CHEMISTRY METHOD 07/24/2024 5:32 PM EDT [facility] Chloride 101 96 - 110 mmol/L LAB CHEMISTRY METHOD 07/24/2024 5:32 PM EDT [facility] CO2 32 21 - 32 mmol/L LAB CHEMISTRY METHOD 07/24/2024 5:32 PM EDT [facility] Anion Gap 4 3 - 11 LAB CHEMISTRY METHOD 07/24/2024 5:32 PM EDT [facility] Glucose 143(H) 70 - 100 mg/dL LAB CHEMISTRY METHOD 07/24/2024 5:32 PM EDT [facility] BUN 14 5 - 25 mg/dL LAB CHEMISTRY METHOD 07/24/2024 5:32 PM EDT [facility] Creatinine 0.88 0.50 - 1.10 mg/dL LAB CHEMISTRY METHOD 07/24/2024 5:32 PM EDT [facility] eGFR 76 >=60 mL/min/1. 73m2 LAB CHEMISTRY METHOD 07/24/2024 5:32 PM EDT [facility] Comment:Calculation based on the Chronic Kidney Disease Epidemiology Collaboration (CKD-EPI) equation refit without adjustment for race. BUN/Creatinine Ratio 15.9 LAB CHEMISTRY METHOD 07/24/2024 5:32 PM EDT [facility] Calcium 9.7 8.5 - 10.5 mg/dL LAB CHEMISTRY METHOD 07/24/2024 5:32 PM T [facility] Blood Venous blood specimen / Unknown Venipuncture / Unknown 07/24/2024 2:26 PM EDT 07/24/2024 2:35 PM EDT Corine CHEN LAB BLOOD ORDERABLES Final Result [facility] [address] [place] [address], * Diabetes Eye Exam (10/10/2023) Pathologist [facility] Diabetes: Annual Retina Eye Exam ABSTRACTED Historical Provider HEALTH MAINTENANCE Final Result * Cervical Cancer Screening: HPV (05/26/2023) Pathologist [facility] Cervical Cancer Screening: HPV NEGATIVE, ABSTRACTED Historical Provider HEALTH MAINTENANCE Final Result * Hepatitis C Screening (05/09/2023) Hepatitis C Screening ABSTRACTED Historical Provider HEALTH MAINTENANCE Final Result * Diabetes Foot Exam (03/08/2023) Diabetes: Annual Foot Exam ABSTRACTED Historical Provider HEALTH MAINTENANCE Final Result * SCREENING MAMMOGRAPHY BI 2-VIEW [...] cancer risk category Moderate (15% - 20%) Deisi CHEN IMG XR PROCEDURES Final Result from Last 3 Months or Most Recently Relevant to Health Maintenance [place] Care Teams Screwdown Operator Relationship Specialty Start Date End Date Nettie Muñoz MD [address] [place], [place] PCP - General Internal Medicine 12/19/19
--- OUTSIDE RECORDS SUMMARY | 2025-01-22 11:20 | XMS_ITS | Patient Health Record ---
Author Organization [facility] Address [address] [facility] [address] [place] [address] Care Team Providers Care Mine Analyst Name Role Phone NANDA HANKS Primary Care Provider Gato Delgado Unavailable Unavailable Allergies Allergen (clinical [...] predniSONE 5 MG (21) as directed Orally daily; Duration: 7 days Take 7 tablets on day [...] Problem Status W/U Status Risk Notes Problem Polyneuropathy due to type 2 diabetes mellitus (624097485) Type 2 diabetes mellitus with diabetic polyneuropathy (E11.42) Active confirmed Problem Peripheral circulatory disorder associated with diabetes mellitus (816350804) Type 2 diabetes mellitus with other circulatory complications (E11.59) Active confirmed Problem Long-term current use of insulin (294866668) skilled nursing (current) use of insulin (Z79.4) Active confirmed Problem Psoriatic arthritis (029649678) Psoriatic arthritis (L40.50) Active confirmed Problem Psoriatic arthritis (disorder) (831469379) Psoriatic arthropathy (L40.50) Active confirmed Problem Tarsal tunnel syndrome (66619550) Tarsal tunnel syndrome of right side (G57.51) Active confirmed Plan Of Treatment Pending Test Test Name Order Date X ray : Foot, right 3v 04/22/2021 Insurance Providers Payer Name Payer Address Payer Phone Subscriber Number Group Number Insured Name Patient Relationship to Insured Coverage Start Date Coverage End Date [employer] [facility] [address] [place] [address] [phone] [id number] Nafisa Cole Self - patient is the insured Medical (General) History Medical History History ICD Code PVD Diabetes mellitus 2 with peripheral vasc ular diseas Diabetes mellitus 2 with neuropathy obesity Diabetes mellitus 2 with catarct hyperlipidemia carpal tunnel syndrome fibromyalgia osteoarthritis of knee psoriasis Surgical History Surgery Date(Month/Year) knee surgery shoulder surgery cataract removal
--- OUTSIDE RECORDS SUMMARY | 2025-01-22 11:20 | XMS_ITS ---
Author Name [facility] Organization Unknown Care Team Organization Name Specialty Phone Email Start Date End Da te [facility] Nettie Muñoz Primary Care 02/23/2022 4
--- OUTSIDE RECORDS SUMMARY | 2025-01-22 11:20 | XMS_ITS ---
Author Organization [address] Address [address] [place] [phone] Phone Care Team Providers Care Director Sales And Marketing Name Role Phone Nettie Muñoz MD Primary Care Provider [phone] [facility] - Social Service Status:Ongoing (Active) Start date:06/18/2024 Enrollment date:06/18/2024 Enrollment reason:Identified as high-risk Current support & services provided:Utilities - ongoing resources Related program episode:Community Health Worker Program (Closed) Overview Social Service service of Community Health Worker Program Case Team Name Relationship Phone Johnathan Grimaldo(Responsible Staff) Community He alth Worker Continued Care and Services Coordination
--- OUTSIDE RECORDS SUMMARY | 2025-01-22 11:20 | XMS_ITS | Clinical Summary ---
Author Organization [facility] Address [address] [place] [address] Care Team Providers Care Big Data Lead Name Role Phone Nettie Muñoz MD Primary Care Provider [phone] Allergies Active Allergy Reactions Criticality Noted Date [...] age to complete this topic Care Teams Big Data Lead Relationship Specialty Start Date End Date Nettie Muñoz MD PCP - General Internal Medicine 01/09/21
--- OUTSIDE RECORDS SUMMARY | 2025-01-22 11:20 | XMS_ITS ---
Author Organization [address] Address [address] [place] [address] Phone Care Team Providers Care Splash Line Operator Name Role Phone Nettie Muñzo MD Primary Care Provider [phone] [facility] - Behavioral Health Status:Ongoing (Active) Start date:06/18/2024 Enrollment date:06/18/2024 Enrollment reason:Identified as high-risk Related program episode:Community Health Worker Program (Closed) Overview Behavior Health service of Community Health Worker Program Case Team Name Relationship Phone Johnathan Grimaldo(Responsible Staff) Community He alth Worker Continued Care and Services Coordination
== END 2025-01-22 09:51 | disposition home or self-care (01) ==
LOC: HO.NEURO 09:50
PROVIDERS: PCP Internal Medicine; Visit Provider Orthopaedic Surgery
DX: R20.0 Anesthesia of skin (principal); R20.2 Paresthesia of skin
CPT/HCPCS: 95909; 95911

== ENCOUNTER → 2025-01-22 09:53 | Outpatient (BNV) | payer MEDICARE, MEDICAID, SELFPAY | PROVIDERS: PCP Internal Medicine; Visit Provider Psychiatry & Neurology Neurology | DX: G56.02 Carpal tunnel syndrome, left upper limb (principal); M54.12 Radiculopathy, cervical region | CPT/HCPCS: 95886; 95909 ==